=== PATIENT | female | born 1960 | race Caucasian/White ===

== ENCOUNTER 2017-09-22 13:09 | Inpatient (IN) | payer MEDICAID ==
[~2017-09-22] VITALS: Ht 162.6 cm; Wt 67.3 kg
[~2017-09-22 13:09] MED LIST: DOCU-28 PO; FLUT16SP16 INH; LIDOCAINE 5% TOP; LORA0.5T PO; NYST1000 PO; ONDA4TAB6 PO; OXCA150T5 PO; OXYC-138 PO; PANT40TA4 PO; PROMETHAZINE/CODEINE PO; VENTOLIN HFA 90 MCG INH; [UNRECOGNIZED DRUG - CODE] PO; [UNRECOGNIZED DRUG - OTHER] PO
[2017-09-22] MEDS ORDERED: heparin 10,000 units/1 ML INJ IV PRN (13:20)
[2017-09-22] MEDS ORDERED: heparin 10,000 units/1 ML INJ IV ONE ×2 (13:20→13:45)
[2017-09-22] MEDS ORDERED: aspirin 81mg tab.chew PO ONE (13:20)
[2017-09-22 13:35] LABS: BASOPHILS # (AUTO) 0.1 X10'3 (0-0.2); BASOPHILS % (AUTO) 0.2 % (0-1); EOSINOPHILS # (AUTO) 0.1 X10'3 (0-0.9); EOSINOPHILS % (AUTO) 0.2 % (0-6); HEMATOCRIT 33.4 % (35.0-45.0); HEMOGLOBIN 11.8 g/dl (12.0-16.0); LYMPHOCYTES # (AUTO) 1.1 X10'3 (1.1-4.8); LYMPHOCYTES % (AUTO) 4.3 % (21-51); MEAN CORPUSCULAR HEMOGLOBIN 29.6 PG (27.0-31.0); MEAN CORPUSCULAR HGB CONC 35.2 % (33.0-36.5); MEAN CORPUSCULAR VOLUME 84.2 FL (78-98); MEAN PLATELET VOLUME 8.7 FL (7.4-10.4); NEUTROPHILS # (AUTO) 23.7 X10'3 (1.8-7.7); NEUTROPHILS % (AUTO) 91.3 % (42-75); PLATELET COUNT 242 X10'3 (140-440); RED BLOOD COUNT 3.97 X10'6 (4.20-5.60); RED CELL DISTRIBUTION WIDTH 14.8 % (11.5-14.5)
[2017-09-22] MEDS ORDERED: LIDOcaine 1%/PF (10mg/ml) 5ml vial ONE (13:35)
[2017-09-22] MEDS ORDERED: iohexol 350 MG/1 ML 200ml bottle ONE (13:35)
[2017-09-22] MEDS ORDERED: heparin 1,000 UNITS/NS 500ml 500 ML ONE (13:35)
[2017-09-22 13:38] LABS: WHITE BLOOD COUNT 25.9 X10'3 (4.5-11.0)
[2017-09-22 13:45] LABS: PARTIAL THROMBOPLASTIN TIME 32 SECONDS (22-32)
[2017-09-22 13:57] LABS: ALANINE AMINOTRANSFERASE 63 U/L (12-78); ALBUMIN 2.7 G/DL (3.4-5.0); ALKALINE PHOSPHATASE 922 IU/L (46-116); ANION GAP 11 (8-16); ASPARTATE AMINO TRANSFERASE 38 U/L (10-37); BLOOD UREA NITROGEN 17 MG/DL (7-18); BUN/CREATININE RATIO 11.7 (6.6-38.0); CALCIUM 8.7 MG/DL (8.5-10.1); CHLORIDE 87 MMOL/L (99-107); CREATININE 1.45 MG/DL (0.40-0.90); MAGNESIUM 1.1 MG/DL (1.5-2.4); TOTAL CARBON DIOXIDE 21.7 MMOL/L (24-32); eGFR 37 ML/MIN
[2017-09-22 13:58] LABS: ALBUMIN/GLOBULIN RATIO 0.5 (1.1-1.5); GLUCOSE 95 MG/DL (70-104); POTASSIUM 4.6 MMOL/L (3.5-5.1)
[2017-09-22 13:59] LABS: PLATELET ESTIMATE NORMAL; TOTAL CELLS COUNTED 100
[2017-09-22 14:01] LABS: SODIUM 120 MMOL/L (135-145)
[2017-09-22] MEDS ORDERED: iohexol 350MG/ML 100ml bottle IV ONE (14:50)
[2017-09-22] MEDS ORDERED: normal saline 1000ML IV soln IVB ONE (15:10)
[2017-09-22] MEDS ORDERED: levoFLOXACIN-Levaquin 750MG/D5 150 ML IV STA (16:06)
[2017-09-22] MEDS ORDERED: fentaNYL/PF 50MCG/1 ML 2ML syringe IV ONE (16:10)
[2017-09-22] MEDS ORDERED: ondansetron/PF 4mg/2ml inj IV PRN (17:10)
[2017-09-22] MEDS ORDERED: mag hydrox/Alum hydrox/simeth 30ml oral suspension PO PRN (17:10)
[2017-09-22] MEDS ORDERED: magnesium hydroxide 30ml (MOM) UD suspension PO PRN (17:10)
[2017-09-22] MEDS ORDERED: acetaminophen 325mg tablet PO PRN ×2 (17:10)
[2017-09-22] MEDS ORDERED: morphine 4 MG/ML inj SYRINge IV PRN ×2 (17:10)
[2017-09-22] MEDS ORDERED: HYDROcodone/acetaminophen 10/325mg tab PO PRN (17:10)
[2017-09-22] MEDS ORDERED: methylPREDNISolone sod succ 125mg/2ml vial IV ONE (17:10)
[2017-09-22] MEDS ORDERED: vancomycin inj 1,250 MG in normal saline 250ml IV soln 250 ML IV ONE (17:40)
[2017-09-22] MEDS ORDERED: nitroGLYCERIN 0.4mg SUBLingual tab SL PRN (18:20)
[2017-09-22 19:15] VITALS: BP 119/59
[2017-09-22] MEDS: ipratropium/albuterol 3ml nebule NEB SCH ×2 (19:43→23:17)
[2017-09-22] MEDS: heparin, porcine 5000 units/ml vial SQ SCH (19:51)
[2017-09-22 19:52] LABS: OSMOLALITY UA 251 MOSM/K (50-1400)
[2017-09-22] MEDS: carVEDilol 3.125mg tablet PO SCH (19:52)
[2017-09-22] MEDS: aspirin 325mg tablet PO SCH (19:52)
[2017-09-22 19:53] LABS: SODIUM,URINE RANDOM < 15 MEQ/L
[2017-09-22] MEDS: normal saline 1000ml 1,000 ML IV SCH (20:02)
[2017-09-22] MEDS: oxyCODONE/APAP 10/325mg tablet PO SCH (20:02)
[2017-09-22 20:35] LABS: ALBUMIN 2.4 G/DL (3.4-5.0); BLOOD UREA NITROGEN 15 MG/DL (7-18); BUN/CREATININE RATIO 11.6 (6.6-38.0); CALCIUM 8.2 MG/DL (8.5-10.1); CHLORIDE 94 MMOL/L (99-107); CREATININE 1.29 MG/DL (0.40-0.90); POTASSIUM 4.4 MMOL/L (3.5-5.1); eGFR 43 ML/MIN
[2017-09-22 20:36] LABS: ANION GAP 11 (8-16); GLUCOSE 79 MG/DL (70-104); SODIUM 125 MMOL/L (135-145)
[2017-09-22] MEDS ORDERED: methylPREDNISolone sod succ 125mg/2ml vial IV SCH (21:00)
[2017-09-22] MEDS: nystatin 500,000 unit/5ML UD oral suspension PO SCH (22:45)
[2017-09-22] MEDS: docusate sod 100mg capsule PO SCH (22:45)
[2017-09-22] MEDS: LORazepam 0.5 MG tablet PO SCH (22:45)
[2017-09-22] MEDS: oxcarbazepine 150mg tablet PO SCH (22:47)
[2017-09-22 23:00] VITALS: BP 88/55
[2017-09-23] MEDS: piperacillin/tazo 4.5gm/100ml 100 ML IV SCH ×3 (01:05→16:51)
[2017-09-23] MEDS: oxyCODONE/APAP 10/325mg tablet PO SCH ×5 (01:52→20:15)
[2017-09-23 02:14] LABS: INR 1.1 INR; PROTHROMBIN TIME 11.5 SECONDS (9.0-12.0)
[2017-09-23 02:23] LABS: ALBUMIN 2.2 G/DL (3.4-5.0); ANION GAP 10 (8-16); BLOOD UREA NITROGEN 16 MG/DL (7-18); BUN/CREATININE RATIO 12.8 (6.6-38.0); CALCIUM 8.3 MG/DL (8.5-10.1); CHLORIDE 96 MMOL/L (99-107); CREATININE 1.25 MG/DL (0.40-0.90); POTASSIUM 4.5 MMOL/L (3.5-5.1); SODIUM 127 MMOL/L (135-145); TOTAL CARBON DIOXIDE 20.6 MMOL/L (24-32); eGFR 44 ML/MIN
[2017-09-23 02:26] LABS: GLUCOSE 99 MG/DL (70-104)
[2017-09-23 03:00] VITALS: BP 93/56
[2017-09-23] MEDS: ipratropium/albuterol 3ml nebule NEB SCH ×6 (03:44→23:05)
[2017-09-23 07:00] VITALS: BP 99/58
[2017-09-23] MEDS: fluticasone furoate 100MCG/puff inhaler IH SCH (08:00)
[2017-09-23] MEDS: carVEDilol 3.125mg tablet PO SCH ×2 (08:00→20:18)
[2017-09-23] MEDS ORDERED: pantoprazole 40 MG vial IV SCH (08:00)
[2017-09-23] MEDS: LORazepam 0.5 MG tablet PO SCH ×3 (08:52→20:16)
[2017-09-23] MEDS: pantoprazole 40mg Tablet.DR PO SCH (08:59)
[2017-09-23] MEDS: docusate sod 100mg capsule PO SCH ×3 (09:08→20:20)
[2017-09-23] MEDS: aspirin 325mg tablet PO SCH (09:09)
[2017-09-23 09:10] LABS: ANION GAP 12 (8-16); BLOOD UREA NITROGEN 20 MG/DL (7-18); BUN/CREATININE RATIO 16.5 (6.6-38.0); CALCIUM 8.5 MG/DL (8.5-10.1); CHLORIDE 97 MMOL/L (99-107); CHOL/HDL RATIO 17.2 (0.00-4.99); CHOLESTEROL 224 MG/DL (0-200); CREATININE 1.21 MG/DL (0.40-0.90); GLUCOSE 116 MG/DL (70-104); HDL CHOLESTEROL 13 MG/DL (35-60); LDL CHOLESTEROL 131 MG/DL (50-100); MAGNESIUM 1.4 MG/DL (1.5-2.4); POTASSIUM 4.1 MMOL/L (3.5-5.1); SODIUM 129 MMOL/L (135-145); TOTAL CARBON DIOXIDE 20.2 MMOL/L (24-32); TRIGLYCERIDES 186 MG/DL (20-135); eGFR 46 ML/MIN
[2017-09-23] MEDS: guaiFENesin ER 600mg tablet PO SCH ×2 (09:23→20:15)
[2017-09-23] MEDS: nystatin 500,000 unit/5ML UD oral suspension PO SCH ×4 (09:28→20:22)
[2017-09-23] MEDS ORDERED: magnesium 2GM in 50ml NS 50 ML IV PRN (09:35)
[2017-09-23] MEDS ORDERED: magnesium Cl slow-release 64mg tablet PO PRN (09:35)
[2017-09-23] MEDS ORDERED: potassium Cl 40MEQ/NS 500ml 500 ML IV PRN ×2 (09:35)
[2017-09-23] MEDS ORDERED: potassium Cl 20 mEq SR tablet PO PRN ×2 (09:35)
[2017-09-23] MEDS ORDERED: magnesium 4gm in 100ml NS 100 ML IV PRN (09:35)
[2017-09-23] MEDS: heparin, porcine 5000 units/ml vial SQ SCH ×2 (09:48→20:21)
[2017-09-23 11:00] VITALS: BP 95/47
[2017-09-23 11:41] LABS: RED BLOOD COUNT 3.29 X10'6 (4.20-5.60); WHITE BLOOD COUNT 23.7 X10'3 (4.5-11.0)
[2017-09-23 11:44] LABS: HEMATOCRIT 28.4 % (35.0-45.0); HEMOGLOBIN 9.8 g/dl (12.0-16.0); MEAN CORPUSCULAR HEMOGLOBIN 29.7 PG (27.0-31.0); MEAN CORPUSCULAR HGB CONC 34.5 % (33.0-36.5); MEAN CORPUSCULAR VOLUME 86.1 FL (78-98); MEAN PLATELET VOLUME 10.2 FL (7.4-10.4); PLATELET COUNT 212 X10'3 (140-440); RED CELL DISTRIBUTION WIDTH 14.8 % (11.5-14.5)
[2017-09-23 12:08] LABS: PLATELET ESTIMATE NORMAL; TOTAL CELLS COUNTED 100
[2017-09-23 12:09] LABS: TOXIC GRANULATION 2+; TOXIC VACUOLATION FEW
[2017-09-23] MEDS: methylPREDNISolone sod succ 125mg/2ml vial IV SCH ×4 (12:31→20:32)
[2017-09-23] MEDS: normal saline 1000ml 1,000 ML IV SCH ×2 (12:46→20:25)
[2017-09-23 14:22] LABS: ALBUMIN 2.1 G/DL (3.4-5.0); ANION GAP 12 (8-16); BLOOD UREA NITROGEN 24 MG/DL (7-18); BUN/CREATININE RATIO 19.8 (6.6-38.0); CALCIUM 8.7 MG/DL (8.5-10.1); CHLORIDE 98 MMOL/L (99-107); CREATININE 1.21 MG/DL (0.40-0.90); GLUCOSE 101 MG/DL (70-104); POTASSIUM 4.1 MMOL/L (3.5-5.1); SODIUM 130 MMOL/L (135-145); TOTAL CARBON DIOXIDE 20.1 MMOL/L (24-32); eGFR 46 ML/MIN
[2017-09-23 17:00] VITALS: BP 89/53
[2017-09-23] MEDS ORDERED: vancomycin/NS 1 GM ADD-VANTAGE 250 ML IV SCH (17:00)
[2017-09-23 19:00] VITALS: BP 106/57
[2017-09-23] MEDS: temazepam 15mg capsule PO PRN (20:15)
[2017-09-23] MEDS: oxcarbazepine 150mg tablet PO SCH (20:25)
[2017-09-23] MEDS: traZODone 150mg tablet PO SCH (21:58)
[2017-09-23] MEDS: nicotine 21mg patch - 24 hr TD SCH (21:59)
[2017-09-23 23:00] VITALS: BP 111/61
[2017-09-24] VITALS (13 sets, daily range): BP systolic 85–121; BP diastolic 46–63
[2017-09-24] MEDS: piperacillin/tazo 4.5gm/100ml 100 ML IV SCH ×3 (00:25→16:22)
[2017-09-24] MEDS: normal saline 1000ml 1,000 ML IV SCH ×2 (01:16→13:46)
[2017-09-24] MEDS: oxyCODONE/APAP 10/325mg tablet PO PRN ×3 (02:45→17:35)
[2017-09-24] MEDS: methylPREDNISolone sod succ 125mg/2ml vial IV SCH ×4 (02:45→20:31)
[2017-09-24] MEDS: ipratropium/albuterol 3ml nebule NEB SCH ×6 (02:58→23:31)
[2017-09-24] MEDS ORDERED: HYDR-3927 PO (04:51)
[2017-09-24] MEDS ORDERED: CLON0.1T PO (04:51)
[2017-09-24] MEDS ORDERED: NAPR-996 PO (04:51)
[2017-09-24] MEDS ORDERED: OMEP20TA5 PO (04:51)
[2017-09-24 05:08] LABS: HEMATOCRIT 27.1 % (35.0-45.0); HEMOGLOBIN 9.4 g/dl (12.0-16.0); MEAN CORPUSCULAR HEMOGLOBIN 29.7 PG (27.0-31.0); MEAN CORPUSCULAR HGB CONC 34.6 % (33.0-36.5); PLATELET COUNT 259 X10'3 (140-440); RED BLOOD COUNT 3.15 X10'6 (4.20-5.60); RED CELL DISTRIBUTION WIDTH 15.1 % (11.5-14.5)
[2017-09-24 05:13] LABS: WHITE BLOOD COUNT 25.1 X10'3 (4.5-11.0)
[2017-09-24 05:17] LABS: PROTHROMBIN TIME 10.3 SECONDS (9.0-12.0)
[2017-09-24 05:28] LABS: ALBUMIN 1.9 G/DL (3.4-5.0); ANION GAP 10 (8-16); BLOOD UREA NITROGEN 33 MG/DL (7-18); BUN/CREATININE RATIO 24.3 (6.6-38.0); CALCIUM 8.4 MG/DL (8.5-10.1); CHLORIDE 98 MMOL/L (99-107); CREATININE 1.36 MG/DL (0.40-0.90); MAGNESIUM 2.8 MG/DL (1.5-2.4); POTASSIUM 3.9 MMOL/L (3.5-5.1); SODIUM 128 MMOL/L (135-145); TOTAL CARBON DIOXIDE 20.3 MMOL/L (24-32); eGFR 40 ML/MIN
[2017-09-24 05:44] LABS: GLUCOSE 152 MG/DL (70-104)
[2017-09-24 07:00] LABS: LYMPHOCYTES % (MANUAL) 8 % (21-51); MONOCYTES % (MANUAL) 2 % (2-12); NEUTROPHILS % (MANUAL) 90 % (42-75); TOTAL CELLS COUNTED 100
[2017-09-24 07:01] LABS: PLATELET ESTIMATE NORMAL
[2017-09-24] MEDS: fluticasone furoate 100MCG/puff inhaler IH SCH (07:45)
[2017-09-24] MEDS: LORazepam 0.5 MG tablet PO SCH ×3 (08:00→20:27)
[2017-09-24] MEDS: carVEDilol 3.125mg tablet PO SCH ×2 (08:00→20:27)
[2017-09-24] MEDS: nicotine 21mg patch - 24 hr TD SCH (08:00)
[2017-09-24] MEDS: docusate sod 100mg capsule PO SCH ×3 (08:00→20:27)
[2017-09-24] MEDS: nystatin 500,000 unit/5ML UD oral suspension PO SCH ×4 (08:00→20:28)
[2017-09-24] MEDS ORDERED: aminophylline 250mg/10ml inj. IV PRN (08:15)
[2017-09-24] MEDS ORDERED: nitroGLYCERIN 0.4mg SUBLingual tab SL PRN (08:15)
[2017-09-24] MEDS ORDERED: metoprolol tartrate 1mg/ml inj IV PRN (08:15)
[2017-09-24] MEDS ORDERED: regadenoson 0.4mg/5ml syringe IV ONE ×2 (08:15→10:29)
[2017-09-24] MEDS ORDERED: aminophylline inj. 10 ML IV ONE (10:29)
[2017-09-24] MEDS: pantoprazole 40mg Tablet.DR PO SCH (12:22)
[2017-09-24] MEDS: aspirin 325mg tablet PO SCH (12:22)
[2017-09-24] MEDS: guaiFENesin ER 600mg tablet PO SCH ×2 (12:22→20:27)
[2017-09-24] MEDS: heparin, porcine 5000 units/ml vial SQ SCH ×2 (12:23→20:30)
[2017-09-24] MEDS: oxcarbazepine 150mg tablet PO SCH (20:26)
[2017-09-24] MEDS ORDERED: HYDROcodone/acetaminophen 10/325mg tab PO ONE (21:50)
[2017-09-24] MEDS: traZODone 150mg tablet PO SCH (21:50)
[2017-09-25] MEDS: piperacillin/tazo 4.5gm/100ml 100 ML IV SCH ×3 (00:57→17:27)
[2017-09-25] MEDS: oxyCODONE/APAP 10/325mg tablet PO PRN ×4 (01:02→20:13)
[2017-09-25] MEDS: methylPREDNISolone sod succ 125mg/2ml vial IV SCH ×4 (01:03→20:14)
[2017-09-25] MEDS: normal saline 1000ml 1,000 ML IV SCH ×2 (02:16→14:46)
[2017-09-25 03:00] VITALS: BP 118/67
[2017-09-25] MEDS: ipratropium/albuterol 3ml nebule NEB SCH ×6 (03:56→23:16)
[2017-09-25 05:05] LABS: HEMATOCRIT 27.7 % (35.0-45.0); HEMOGLOBIN 9.6 g/dl (12.0-16.0); MEAN CORPUSCULAR HEMOGLOBIN 29.5 PG (27.0-31.0); MEAN CORPUSCULAR HGB CONC 34.8 % (33.0-36.5); MEAN CORPUSCULAR VOLUME 84.9 FL (78-98); MEAN PLATELET VOLUME 8.7 FL (7.4-10.4); PLATELET COUNT 281 X10'3 (140-440); RED BLOOD COUNT 3.26 X10'6 (4.20-5.60); RED CELL DISTRIBUTION WIDTH 15.2 % (11.5-14.5); WHITE BLOOD COUNT 21.5 X10'3 (4.5-11.0)
[2017-09-25 05:16] LABS: ANION GAP 7 (8-16); BLOOD UREA NITROGEN 29 MG/DL (7-18); CALCIUM 8.4 MG/DL (8.5-10.1); CHLORIDE 100 MMOL/L (99-107); CREATININE 1.21 MG/DL (0.40-0.90); MAGNESIUM 2.4 MG/DL (1.5-2.4); POTASSIUM 4.4 MMOL/L (3.5-5.1); SODIUM 129 MMOL/L (135-145); TOTAL CARBON DIOXIDE 21.7 MMOL/L (24-32); eGFR 46 ML/MIN
[2017-09-25 05:17] LABS: INR 0.9 INR; PROTHROMBIN TIME 9.4 SECONDS (9.0-12.0)
[2017-09-25 05:30] VITALS: BP 111/69
[2017-09-25 05:37] LABS: GLUCOSE 152 MG/DL (70-104)
[2017-09-25 05:38] LABS: BANDS% (MANUAL) 3 % (0-10); LYMPHOCYTES % (MANUAL) 6 % (21-51); METAMYLEOCYTES% (MANUAL) 1 % (0-0); NEUTROPHILS % (MANUAL) 90 % (42-75); PLATELET ESTIMATE NORMAL; TOTAL CELLS COUNTED 100
[2017-09-25 05:39] LABS: TARGET CELLS FEW; TOXIC GRANULATION 1+
[2017-09-25] MEDS: fluticasone furoate 100MCG/puff inhaler IH SCH (07:03)
[2017-09-25] MEDS: nystatin 500,000 unit/5ML UD oral suspension PO SCH ×4 (07:35→20:12)
[2017-09-25] MEDS: nicotine 21mg patch - 24 hr TD SCH (07:35)
[2017-09-25] MEDS: docusate sod 100mg capsule PO SCH ×3 (07:36→20:13)
[2017-09-25] MEDS: pantoprazole 40mg Tablet.DR PO SCH (07:36)
[2017-09-25] MEDS: guaiFENesin ER 600mg tablet PO SCH ×2 (07:37→20:13)
[2017-09-25] MEDS: heparin, porcine 5000 units/ml vial SQ SCH ×2 (07:37→20:14)
[2017-09-25] MEDS: LORazepam 0.5 MG tablet PO SCH ×2 (07:37→13:00)
[2017-09-25] MEDS: carVEDilol 3.125mg tablet PO SCH ×2 (07:37→20:12)
[2017-09-25] MEDS: aspirin 325mg tablet PO SCH (10:07)
[2017-09-25 11:00] VITALS: BP 110/65
[2017-09-25 15:00] VITALS: BP 123/66
[2017-09-25] MEDS ORDERED: methylPREDNISolone sod succ 125mg/2ml vial IV ONE (16:20)
[2017-09-25 19:00] VITALS: BP 122/73
[2017-09-25] MEDS: oxcarbazepine 150mg tablet PO SCH (20:13)
[2017-09-25] MEDS ORDERED: methylPREDNISolone sod succ 125mg/2ml vial IV SCH (21:00)
[2017-09-25] MEDS: traZODone 150mg tablet PO SCH (21:55)
[2017-09-26] VITALS: BP 140/80
[2017-09-26] MEDS: piperacillin/tazo 4.5gm/100ml 100 ML IV SCH ×2 (00:23→07:49)
[2017-09-26] MEDS: LORazepam 0.5 MG tablet PO PRN ×2 (00:24→19:51)
[2017-09-26] MEDS: ipratropium/albuterol 3ml nebule NEB SCH ×6 (02:46→23:04)
[2017-09-26] MEDS: methylPREDNISolone sod succ 125mg/2ml vial IV SCH ×4 (02:50→19:52)
[2017-09-26] MEDS: HYDROcodone/acetaminophen 5mg/325mg tablet PO PRN (03:10)
[2017-09-26 05:31] LABS: BASOPHILS % (AUTO) 0 % (0-1); EOSINOPHILS # (AUTO) 0.4 X10'3 (0-0.9); EOSINOPHILS % (AUTO) 1.7 % (0-6); HEMATOCRIT 27.6 % (35.0-45.0); HEMOGLOBIN 9.6 g/dl (12.0-16.0); LYMPHOCYTES # (AUTO) 3.3 X10'3 (1.1-4.8); LYMPHOCYTES % (AUTO) 15.4 % (21-51); MEAN CORPUSCULAR HEMOGLOBIN 29.4 PG (27.0-31.0); MEAN CORPUSCULAR HGB CONC 34.8 % (33.0-36.5); MEAN CORPUSCULAR VOLUME 84.5 FL (78-98); MEAN PLATELET VOLUME 8.5 FL (7.4-10.4); MONOCYTES # (AUTO) 0.6 X10'3 (0-0.9); MONOCYTES % (AUTO) 2.9 % (2-12); NEUTROPHILS # (AUTO) 17.2 X10'3 (1.8-7.7); PLATELET COUNT 326 X10'3 (140-440); RED BLOOD COUNT 3.26 X10'6 (4.20-5.60); RED CELL DISTRIBUTION WIDTH 15.2 % (11.5-14.5); WHITE BLOOD COUNT 21.4 X10'3 (4.5-11.0)
[2017-09-26 05:47] LABS: ALBUMIN 2.1 G/DL (3.4-5.0); ANION GAP 7 (8-16); BLOOD UREA NITROGEN 25 MG/DL (7-18); BUN/CREATININE RATIO 22.5 (6.6-38.0); CALCIUM 8.8 MG/DL (8.5-10.1); CHLORIDE 96 MMOL/L (99-107); CREATININE 1.11 MG/DL (0.40-0.90); POTASSIUM 4.4 MMOL/L (3.5-5.1); SODIUM 128 MMOL/L (135-145); TOTAL CARBON DIOXIDE 24.6 MMOL/L (24-32); eGFR 51 ML/MIN
[2017-09-26 05:49] LABS: GLUCOSE 136 MG/DL (70-104)
[2017-09-26 05:56] LABS: INR 0.9 INR; PROTHROMBIN TIME 9.6 SECONDS (9.0-12.0)
[2017-09-26 07:24] LABS: ANISOCYTOSIS 1+; MICROCYTOSIS 1+; PLATELET ESTIMATE NORMAL; TARGET CELLS FEW; TOTAL CELLS COUNTED 100
[2017-09-26] MEDS: fluticasone furoate 100MCG/puff inhaler IH SCH (07:27)
[2017-09-26] MEDS: guaiFENesin ER 600mg tablet PO SCH ×2 (07:48→19:52)
[2017-09-26] MEDS: aspirin 325mg tablet PO SCH (07:48)
[2017-09-26] MEDS: carVEDilol 3.125mg tablet PO SCH ×2 (07:48→19:52)
[2017-09-26] MEDS: pantoprazole 40mg Tablet.DR PO SCH (07:48)
[2017-09-26] MEDS: docusate sod 100mg capsule PO SCH ×3 (07:48→21:11)
[2017-09-26] MEDS: nicotine 21mg patch - 24 hr TD SCH (07:49)
[2017-09-26] MEDS: heparin, porcine 5000 units/ml vial SQ SCH ×2 (07:49→19:52)
[2017-09-26] MEDS: nystatin 500,000 unit/5ML UD oral suspension PO SCH ×4 (07:59→21:10)
[2017-09-26] MEDS ORDERED: levoFLOXACIN-Levaquin 750MG/D5 150 ML IV STA (09:37)
[2017-09-26 11:00] VITALS: BP 146/81
[2017-09-26] MEDS: busPIRone 5mg tablet PO SCH ×2 (13:16→21:11)
[2017-09-26] MEDS: oxyCODONE/APAP 10/325mg tablet PO PRN ×2 (13:23→19:51)
[2017-09-26] MEDS: metroNIDAZOLE-Flagyl 500mg/NS 100 ML IV SCH ×2 (16:55→23:17)
[2017-09-26 20:00] VITALS: BP 100/60
[2017-09-26] MEDS: oxcarbazepine 150mg tablet PO SCH (21:10)
[2017-09-26] MEDS: traZODone 150mg tablet PO SCH (21:10)
[2017-09-26] MEDS: temazepam 15mg capsule PO PRN (21:11)
[2017-09-27] VITALS: BP 135/68
[2017-09-27] MEDS: methylPREDNISolone sod succ 125mg/2ml vial IV SCH ×4 (01:47→20:08)
[2017-09-27] MEDS: ipratropium/albuterol 3ml nebule NEB SCH ×5 (03:22→22:58)
[2017-09-27] MEDS: oxyCODONE/APAP 10/325mg tablet PO PRN ×2 (05:30→15:11)
[2017-09-27 06:23] LABS: BASOPHILS # (AUTO) 0.1 X10'3 (0-0.2); BASOPHILS % (AUTO) 0.4 % (0-1); EOSINOPHILS # (AUTO) 0.3 X10'3 (0-0.9); EOSINOPHILS % (AUTO) 1.2 % (0-6); HEMATOCRIT 31.9 % (35.0-45.0); HEMOGLOBIN 11.1 g/dl (12.0-16.0); LYMPHOCYTES # (AUTO) 2.8 X10'3 (1.1-4.8); LYMPHOCYTES % (AUTO) 12.1 % (21-51); MEAN CORPUSCULAR HEMOGLOBIN 29.5 PG (27.0-31.0); MEAN CORPUSCULAR HGB CONC 34.7 % (33.0-36.5); MEAN PLATELET VOLUME 8.3 FL (7.4-10.4); MONOCYTES # (AUTO) 0.7 X10'3 (0-0.9); MONOCYTES % (AUTO) 3.2 % (2-12); NEUTROPHILS # (AUTO) 19.5 X10'3 (1.8-7.7); NEUTROPHILS % (AUTO) 83.1 % (42-75); PLATELET COUNT 398 X10'3 (140-440); RED BLOOD COUNT 3.76 X10'6 (4.20-5.60); RED CELL DISTRIBUTION WIDTH 15.3 % (11.5-14.5); WHITE BLOOD COUNT 23.5 X10'3 (4.5-11.0)
[2017-09-27 06:35] LABS: ALBUMIN 2.2 G/DL (3.4-5.0); ANION GAP 7 (8-16); BLOOD UREA NITROGEN 22 MG/DL (7-18); BUN/CREATININE RATIO 24.7 (6.6-38.0); CALCIUM 9.1 MG/DL (8.5-10.1); CHLORIDE 102 MMOL/L (99-107); CREATININE 0.89 MG/DL (0.40-0.90); MAGNESIUM 1.9 MG/DL (1.5-2.4); SODIUM 135 MMOL/L (135-145); TOTAL CARBON DIOXIDE 26.4 MMOL/L (24-32); eGFR 65 ML/MIN
[2017-09-27 06:37] LABS: GLUCOSE 136 MG/DL (70-104)
[2017-09-27 07:11] LABS: TOTAL CELLS COUNTED 100
[2017-09-27 07:12] LABS: ANISOCYTOSIS 1+; PLATELET ESTIMATE NORMAL; TARGET CELLS 1+
[2017-09-27 07:13] LABS: TOXIC GRANULATION 1+
[2017-09-27 07:42] VITALS: BP 137/78
[2017-09-27] MEDS: nystatin 500,000 unit/5ML UD oral suspension PO SCH ×4 (07:58→20:07)
[2017-09-27] MEDS: busPIRone 5mg tablet PO SCH ×3 (07:59→20:07)
[2017-09-27] MEDS: heparin, porcine 5000 units/ml vial SQ SCH ×2 (07:59→19:06)
[2017-09-27] MEDS: nicotine 21mg patch - 24 hr TD SCH (07:59)
[2017-09-27] MEDS: guaiFENesin ER 600mg tablet PO SCH ×2 (08:00→19:05)
[2017-09-27] MEDS: carVEDilol 3.125mg tablet PO SCH ×2 (08:00→19:05)
[2017-09-27] MEDS: docusate sod 100mg capsule PO SCH ×3 (08:00→20:07)
[2017-09-27] MEDS: pantoprazole 40mg Tablet.DR PO SCH (08:00)
[2017-09-27] MEDS: aspirin 325mg tablet PO SCH (08:02)
[2017-09-27] MEDS: metroNIDAZOLE-Flagyl 500mg/NS 100 ML IV SCH ×3 (08:02→23:58)
[2017-09-27] MEDS: HYDROcodone/acetaminophen 5mg/325mg tablet PO PRN ×2 (10:12→20:07)
[2017-09-27] MEDS: fluticasone furoate 100MCG/puff inhaler IH SCH (10:57)
[2017-09-27 11:00] VITALS: BP 119/67
[2017-09-27] MEDS ORDERED: levoFLOXACIN-Levaquin 750MG/D5 150 ML IV STA (12:30)
[2017-09-27 19:00] VITALS: BP 126/71
[2017-09-27] MEDS: traZODone 150mg tablet PO SCH (20:07)
[2017-09-27] MEDS: temazepam 15mg capsule PO PRN (21:20)
[2017-09-27] MEDS: oxcarbazepine 150mg tablet PO SCH (21:20)
[2017-09-27 23:30] VITALS: BP 128/66
[2017-09-28] VITALS: BP 128/66
[2017-09-28] MEDS: oxyCODONE/APAP 10/325mg tablet PO PRN ×4 (00:48→23:15)
[2017-09-28] MEDS: ipratropium/albuterol 3ml nebule NEB SCH ×6 (02:58→22:42)
[2017-09-28 05:44] LABS: POTASSIUM 3.8 MMOL/L (3.5-5.1)
[2017-09-28] MEDS: fluticasone furoate 100MCG/puff inhaler IH SCH (06:54)
[2017-09-28 07:30] VITALS: BP 149/76
[2017-09-28] MEDS: guaiFENesin ER 600mg tablet PO SCH ×2 (07:52→19:13)
[2017-09-28] MEDS: nystatin 500,000 unit/5ML UD oral suspension PO SCH ×4 (07:53→21:24)
[2017-09-28] MEDS: busPIRone 5mg tablet PO SCH ×3 (07:53→21:23)
[2017-09-28] MEDS: docusate sod 100mg capsule PO SCH ×3 (07:54→21:24)
[2017-09-28] MEDS: aspirin 325mg tablet PO SCH (07:54)
[2017-09-28] MEDS: carVEDilol 3.125mg tablet PO SCH ×2 (07:54→19:13)
[2017-09-28] MEDS: metroNIDAZOLE-Flagyl 500mg/NS 100 ML IV SCH ×3 (07:54→23:13)
[2017-09-28] MEDS: pantoprazole 40mg Tablet.DR PO SCH (07:56)
[2017-09-28] MEDS: nicotine 21mg patch - 24 hr TD SCH (07:57)
[2017-09-28] MEDS: heparin, porcine 5000 units/ml vial SQ SCH ×2 (07:57→19:13)
[2017-09-28] MEDS: methylPREDNISolone sod succ 125mg/2ml vial IV SCH ×3 (07:57→21:24)
[2017-09-28 09:10] LABS: BASOPHILS # (AUTO) 0.2 X10'3 (0-0.2); BASOPHILS % (AUTO) 0.9 % (0-1); EOSINOPHILS # (AUTO) 0.2 X10'3 (0-0.9); HEMATOCRIT 31.6 % (35.0-45.0); HEMOGLOBIN 10.5 g/dl (12.0-16.0); LYMPHOCYTES # (AUTO) 3.8 X10'3 (1.1-4.8); LYMPHOCYTES % (AUTO) 16.6 % (21-51); MEAN CORPUSCULAR HEMOGLOBIN 28.9 PG (27.0-31.0); MEAN CORPUSCULAR HGB CONC 33.2 % (33.0-36.5); MEAN CORPUSCULAR VOLUME 87.1 FL (78-98); MEAN PLATELET VOLUME 8.7 FL (7.4-10.4); MONOCYTES # (AUTO) 0.6 X10'3 (0-0.9); MONOCYTES % (AUTO) 2.5 % (2-12); NEUTROPHILS # (AUTO) 18.2 X10'3 (1.8-7.7); PLATELET COUNT 380 X10'3 (140-440); RED BLOOD COUNT 3.63 X10'6 (4.20-5.60); RED CELL DISTRIBUTION WIDTH 15.1 % (11.5-14.5); WHITE BLOOD COUNT 23.1 X10'3 (4.5-11.0)
[2017-09-28 09:23] LABS: ANION GAP 8 (8-16); BLOOD UREA NITROGEN 22 MG/DL (7-18); BUN/CREATININE RATIO 25.9 (6.6-38.0); CALCIUM 8.5 MG/DL (8.5-10.1); CHLORIDE 103 MMOL/L (99-107); CREATININE 0.85 MG/DL (0.40-0.90); GLUCOSE 130 MG/DL (70-104); SODIUM 139 MMOL/L (135-145); TOTAL CARBON DIOXIDE 28.3 MMOL/L (24-32); eGFR 69 ML/MIN
[2017-09-28 09:28] LABS: TOTAL CELLS COUNTED 100
[2017-09-28 09:29] LABS: ANISOCYTOSIS 1+; MICROCYTOSIS 1+; PLATELET ESTIMATE NORMAL; TARGET CELLS 1+; TOXIC GRANULATION 1+
[2017-09-28 11:00] VITALS: BP 147/88
[2017-09-28] MEDS: HYDROcodone/acetaminophen 5mg/325mg tablet PO PRN ×2 (13:03→21:23)
[2017-09-28 19:51] VITALS: BP 148/77
[2017-09-28] MEDS: temazepam 15mg capsule PO PRN (21:23)
[2017-09-28] MEDS: traZODone 150mg tablet PO SCH (21:24)
[2017-09-28] MEDS: oxcarbazepine 150mg tablet PO SCH (21:24)
[2017-09-29] VITALS: BP 129/67
[2017-09-29] MEDS: ipratropium/albuterol 3ml nebule NEB SCH ×5 (03:54→23:21)
[2017-09-29 08:00] VITALS: BP 135/69
[2017-09-29] MEDS ORDERED: methylPREDNISolone sod succ 125mg/2ml vial IV SCH (08:00)
[2017-09-29] MEDS: fluticasone furoate 100MCG/puff inhaler IH SCH (08:00)
[2017-09-29] MEDS: vancomycin/NS 1 GM ADD-VANTAGE 250 ML IV SCH ×2 (09:27→21:34)
[2017-09-29] MEDS: aspirin 325mg tablet PO SCH (09:27)
[2017-09-29] MEDS: guaiFENesin ER 600mg tablet PO SCH ×2 (09:28→20:08)
[2017-09-29] MEDS: nystatin 500,000 unit/5ML UD oral suspension PO SCH ×4 (09:28→21:36)
[2017-09-29] MEDS: docusate sod 100mg capsule PO SCH ×3 (09:31→21:35)
[2017-09-29] MEDS: carVEDilol 3.125mg tablet PO SCH ×2 (09:31→20:08)
[2017-09-29] MEDS: busPIRone 5mg tablet PO SCH ×3 (09:31→21:35)
[2017-09-29] MEDS: pantoprazole 40mg Tablet.DR PO SCH (09:31)
[2017-09-29] MEDS: oxyCODONE/APAP 10/325mg tablet PO PRN ×3 (09:32→21:35)
[2017-09-29] MEDS: nicotine 21mg patch - 24 hr TD SCH (09:33)
[2017-09-29] MEDS: heparin, porcine 5000 units/ml vial SQ SCH ×2 (09:34→20:13)
[2017-09-29 11:00] VITALS: BP 147/81
[2017-09-29] MEDS: HYDROcodone/acetaminophen 5mg/325mg tablet PO PRN (17:56)
[2017-09-29 19:30] VITALS: BP 147/81
[2017-09-29] MEDS: traZODone 150mg tablet PO SCH (21:35)
[2017-09-29] MEDS: oxcarbazepine 150mg tablet PO SCH (21:35)
[2017-09-30 00:38] VITALS: BP 136/74
[2017-09-30] MEDS: HYDROcodone/acetaminophen 5mg/325mg tablet PO PRN ×4 (02:55→22:48)
[2017-09-30] MEDS: ipratropium/albuterol 3ml nebule NEB SCH (03:01)
[2017-09-30 05:07] LABS: BASOPHILS % (AUTO) 0.1 % (0-1); EOSINOPHILS # (AUTO) 0.3 X10'3 (0-0.9); EOSINOPHILS % (AUTO) 1.4 % (0-6); HEMATOCRIT 33.2 % (35.0-45.0); HEMOGLOBIN 11.3 g/dl (12.0-16.0); MEAN CORPUSCULAR VOLUME 85.3 FL (78-98); MEAN PLATELET VOLUME 7.6 FL (7.4-10.4); MONOCYTES # (AUTO) 0.2 X10'3 (0-0.9); MONOCYTES % (AUTO) 0.9 % (2-12); NEUTROPHILS # (AUTO) 14.5 X10'3 (1.8-7.7); NEUTROPHILS % (AUTO) 72.6 % (42-75); PLATELET COUNT 391 X10'3 (140-440); RED BLOOD COUNT 3.89 X10'6 (4.20-5.60); RED CELL DISTRIBUTION WIDTH 15.1 % (11.5-14.5)
[2017-09-30] MEDS: oxyCODONE/APAP 10/325mg tablet PO PRN ×3 (05:16→19:25)
[2017-09-30 05:27] LABS: ALBUMIN 2.4 G/DL (3.4-5.0); ANION GAP 6 (8-16); BLOOD UREA NITROGEN 17 MG/DL (7-18); BUN/CREATININE RATIO 17.5 (6.6-38.0); CALCIUM 8.7 MG/DL (8.5-10.1); CHLORIDE 101 MMOL/L (99-107); CREATININE 0.97 MG/DL (0.40-0.90); GLUCOSE 97 MG/DL (70-104); POTASSIUM 3.7 MMOL/L (3.5-5.1); SODIUM 143 MMOL/L (135-145); TOTAL CARBON DIOXIDE 36.4 MMOL/L (24-32); eGFR 59 ML/MIN
[2017-09-30 07:34] VITALS: BP 140/71
[2017-09-30] MEDS: fluticasone furoate 100MCG/puff inhaler IH SCH (07:37)
[2017-09-30] MEDS: nystatin 500,000 unit/5ML UD oral suspension PO SCH ×4 (09:39→21:27)
[2017-09-30] MEDS: heparin, porcine 5000 units/ml vial SQ SCH ×2 (09:40→19:24)
[2017-09-30] MEDS: guaiFENesin ER 600mg tablet PO SCH ×2 (09:45→19:25)
[2017-09-30] MEDS: pantoprazole 40mg Tablet.DR PO SCH (09:45)
[2017-09-30] MEDS: nicotine 21mg patch - 24 hr TD SCH (09:45)
[2017-09-30] MEDS: docusate sod 100mg capsule PO SCH ×3 (09:45→21:27)
[2017-09-30] MEDS: carVEDilol 3.125mg tablet PO SCH ×2 (09:46→19:25)
[2017-09-30] MEDS: aspirin 325mg tablet PO SCH (09:46)
[2017-09-30] MEDS: busPIRone 5mg tablet PO SCH ×3 (09:49→21:27)
[2017-09-30] MEDS: vancomycin/NS 1 GM ADD-VANTAGE 250 ML IV SCH ×2 (09:50→21:27)
[2017-09-30 11:00] VITALS: BP 109/71
[2017-09-30 20:00] VITALS: BP 130/84
[2017-09-30] MEDS ORDERED: VANCOMYCIN LEVEL IV NR (20:30)
[2017-09-30] MEDS: oxcarbazepine 150mg tablet PO SCH (21:25)
[2017-09-30] MEDS: traZODone 150mg tablet PO SCH (21:27)
[2017-10-01] VITALS: BP 108/57
[2017-10-01] MEDS: temazepam 15mg capsule PO PRN ×2 (02:15→21:54)
[2017-10-01] MEDS: HYDROcodone/acetaminophen 5mg/325mg tablet PO PRN ×3 (02:53→19:16)
[2017-10-01 05:20] LABS: BASOPHILS % (AUTO) 0.1 % (0-1); EOSINOPHILS # (AUTO) 0.4 X10'3 (0-0.9); EOSINOPHILS % (AUTO) 2.3 % (0-6); HEMATOCRIT 33.1 % (35.0-45.0); HEMOGLOBIN 11.4 g/dl (12.0-16.0); LYMPHOCYTES # (AUTO) 5.3 X10'3 (1.1-4.8); MEAN CORPUSCULAR HEMOGLOBIN 29.3 PG (27.0-31.0); MEAN CORPUSCULAR HGB CONC 34.4 % (33.0-36.5); MEAN CORPUSCULAR VOLUME 85.2 FL (78-98); MONOCYTES # (AUTO) 0.7 X10'3 (0-0.9); MONOCYTES % (AUTO) 3.8 % (2-12); NEUTROPHILS # (AUTO) 12.5 X10'3 (1.8-7.7); NEUTROPHILS % (AUTO) 65.8 % (42-75); PLATELET COUNT 342 X10'3 (140-440); RED BLOOD COUNT 3.88 X10'6 (4.20-5.60); RED CELL DISTRIBUTION WIDTH 15.1 % (11.5-14.5); WHITE BLOOD COUNT 18.9 X10'3 (4.5-11.0)
[2017-10-01 05:34] LABS: ALBUMIN 2.3 G/DL (3.4-5.0); ANION GAP 5 (8-16); BLOOD UREA NITROGEN 14 MG/DL (7-18); BUN/CREATININE RATIO 14.9 (6.6-38.0); CALCIUM 8.6 MG/DL (8.5-10.1); CHLORIDE 100 MMOL/L (99-107); CREATININE 0.94 MG/DL (0.40-0.90); GLUCOSE 85 MG/DL (70-104); POTASSIUM 3.5 MMOL/L (3.5-5.1); SODIUM 141 MMOL/L (135-145); TOTAL CARBON DIOXIDE 35.6 MMOL/L (24-32); eGFR 61 ML/MIN
[2017-10-01 07:00] VITALS: BP 145/70
[2017-10-01] MEDS: docusate sod 100mg capsule PO SCH ×3 (07:48→20:50)
[2017-10-01] MEDS: guaiFENesin ER 600mg tablet PO SCH ×2 (07:49→20:50)
[2017-10-01] MEDS: oxyCODONE/APAP 10/325mg tablet PO PRN ×2 (07:51→16:03)
[2017-10-01] MEDS: busPIRone 5mg tablet PO SCH ×3 (07:52→20:50)
[2017-10-01] MEDS: nicotine 21mg patch - 24 hr TD SCH (07:53)
[2017-10-01] MEDS: nystatin 500,000 unit/5ML UD oral suspension PO SCH ×4 (07:53→20:49)
[2017-10-01] MEDS: carVEDilol 3.125mg tablet PO SCH ×2 (07:56→20:50)
[2017-10-01] MEDS: pantoprazole 40mg Tablet.DR PO SCH (07:56)
[2017-10-01] MEDS: heparin, porcine 5000 units/ml vial SQ SCH ×2 (07:56→20:50)
[2017-10-01] MEDS: fluticasone furoate 100MCG/puff inhaler IH SCH (08:00)
[2017-10-01] MEDS: aspirin 325mg tablet PO SCH (08:03)
[2017-10-01] MEDS: vancomycin inj 1,250 MG in normal saline 250ml IV soln 250 ML IV SCH ×2 (09:58→20:50)
[2017-10-01 11:00] VITALS: BP 103/59
[2017-10-01 20:00] VITALS: BP 133/73
[2017-10-01] MEDS: oxcarbazepine 150mg tablet PO SCH (20:49)
[2017-10-01] MEDS: traZODone 150mg tablet PO SCH (20:49)
[2017-10-02] VITALS: BP 131/69
[2017-10-02] MEDS: oxyCODONE/APAP 10/325mg tablet PO PRN ×2 (00:59→20:03)
[2017-10-02] MEDS: temazepam 15mg capsule PO PRN (00:59)
[2017-10-02 05:24] LABS: BASOPHILS # (AUTO) 0.1 X10'3 (0-0.2); BASOPHILS % (AUTO) 0.4 % (0-1); EOSINOPHILS # (AUTO) 0.4 X10'3 (0-0.9); EOSINOPHILS % (AUTO) 2.1 % (0-6); HEMATOCRIT 30.7 % (35.0-45.0); HEMOGLOBIN 10.4 g/dl (12.0-16.0); LYMPHOCYTES # (AUTO) 3.9 X10'3 (1.1-4.8); LYMPHOCYTES % (AUTO) 19.8 % (21-51); MEAN CORPUSCULAR HEMOGLOBIN 29.2 PG (27.0-31.0); MEAN CORPUSCULAR HGB CONC 33.9 % (33.0-36.5); MEAN CORPUSCULAR VOLUME 86.3 FL (78-98); MEAN PLATELET VOLUME 8.5 FL (7.4-10.4); MONOCYTES # (AUTO) 1.3 X10'3 (0-0.9); MONOCYTES % (AUTO) 6.7 % (2-12); NEUTROPHILS # (AUTO) 13.9 X10'3 (1.8-7.7); PLATELET COUNT 268 X10'3 (140-440); RED BLOOD COUNT 3.56 X10'6 (4.20-5.60); RED CELL DISTRIBUTION WIDTH 15.5 % (11.5-14.5); WHITE BLOOD COUNT 19.6 X10'3 (4.5-11.0)
[2017-10-02 05:46] LABS: ALBUMIN 2.1 G/DL (3.4-5.0); ANION GAP 5 (8-16); BLOOD UREA NITROGEN 12 MG/DL (7-18); BUN/CREATININE RATIO 14.8 (6.6-38.0); CALCIUM 8.4 MG/DL (8.5-10.1); CHLORIDE 99 MMOL/L (99-107); CREATININE 0.81 MG/DL (0.40-0.90); GLUCOSE 95 MG/DL (70-104); POTASSIUM 3.7 MMOL/L (3.5-5.1); SODIUM 137 MMOL/L (135-145); TOTAL CARBON DIOXIDE 33.2 MMOL/L (24-32); eGFR 73 ML/MIN
[2017-10-02] MEDS: HYDROcodone/acetaminophen 5mg/325mg tablet PO PRN ×3 (06:03→16:07)
[2017-10-02 08:08] VITALS: BP 113/64
[2017-10-02] MEDS: heparin, porcine 5000 units/ml vial SQ SCH ×2 (08:40→20:00)
[2017-10-02] MEDS: nicotine 21mg patch - 24 hr TD SCH (08:40)
[2017-10-02] MEDS: nystatin 500,000 unit/5ML UD oral suspension PO SCH ×4 (08:40→21:49)
[2017-10-02] MEDS: aspirin 325mg tablet PO SCH (08:41)
[2017-10-02] MEDS: docusate sod 100mg capsule PO SCH ×3 (08:41→21:52)
[2017-10-02] MEDS: carVEDilol 3.125mg tablet PO SCH ×2 (08:41→21:47)
[2017-10-02] MEDS: pantoprazole 40mg Tablet.DR PO SCH (08:41)
[2017-10-02] MEDS: busPIRone 5mg tablet PO SCH ×3 (08:41→21:47)
[2017-10-02] MEDS: guaiFENesin ER 600mg tablet PO SCH ×2 (08:41→21:48)
[2017-10-02] MEDS: vancomycin inj 1,250 MG in normal saline 250ml IV soln 250 ML IV SCH ×2 (08:51→21:52)
[2017-10-02] MEDS ORDERED: iohexol 300mg/ml 100ml inj. ONE (11:33)
[2017-10-02 12:20] VITALS: BP 111/64
[2017-10-02 18:00] VITALS: BP 139/75
[2017-10-02] MEDS: LORazepam 0.5 MG tablet PO PRN (20:04)
[2017-10-02] MEDS ORDERED: VANCOMYCIN LEVEL IV ONE (20:30)
[2017-10-02] MEDS: piperacillin/tazo 3.375gm/50ml 50 ML IV SCH (21:00)
[2017-10-02] MEDS: HYDROmorphone 2mg tablet PO ONE ×2 (21:05→21:47)
[2017-10-02] MEDS: diatr meglu/diatrizoate 30ml oral sol.-(3 dose) bottle PO SCH (21:44)
[2017-10-02] MEDS: lactobacillus rhamnosus 10,000 MMU CELLS/CAPSULE PO SCH (21:47)
[2017-10-02] MEDS: traZODone 150mg tablet PO SCH (21:47)
[2017-10-02] MEDS: oxcarbazepine 150mg tablet PO SCH (21:48)
[2017-10-02] MEDS ORDERED: vancomycin/NS 1 GM ADD-VANTAGE 250 ML IV SCH (22:00)
[2017-10-03] VITALS (9 sets, daily range): BP systolic 70–119; BP diastolic 42–69
[2017-10-03] MEDS: HYDROcodone/acetaminophen 5mg/325mg tablet PO PRN ×3 (00:28→19:27)
[2017-10-03] MEDS: piperacillin/tazo 3.375gm/50ml 50 ML IV SCH ×2 (01:18→08:08)
[2017-10-03] MEDS ORDERED: potassium Cl 20 mEq SR tablet PO STA (02:15)
[2017-10-03 05:22] LABS: BASOPHILS # (AUTO) 0.1 X10'3 (0-0.2); BASOPHILS % (AUTO) 0.4 % (0-1); EOSINOPHILS # (AUTO) 0.5 X10'3 (0-0.9); EOSINOPHILS % (AUTO) 2.8 % (0-6); HEMATOCRIT 28.9 % (35.0-45.0); HEMOGLOBIN 9.9 g/dl (12.0-16.0); LYMPHOCYTES # (AUTO) 2.3 X10'3 (1.1-4.8); LYMPHOCYTES % (AUTO) 12.4 % (21-51); MEAN CORPUSCULAR HEMOGLOBIN 29.3 PG (27.0-31.0); MEAN CORPUSCULAR HGB CONC 34.3 % (33.0-36.5); MEAN CORPUSCULAR VOLUME 85.3 FL (78-98); MEAN PLATELET VOLUME 8.5 FL (7.4-10.4); MONOCYTES # (AUTO) 1.6 X10'3 (0-0.9); MONOCYTES % (AUTO) 8.8 % (2-12); NEUTROPHILS # (AUTO) 13.7 X10'3 (1.8-7.7); NEUTROPHILS % (AUTO) 75.6 % (42-75); PLATELET COUNT 230 X10'3 (140-440); RED BLOOD COUNT 3.38 X10'6 (4.20-5.60); RED CELL DISTRIBUTION WIDTH 15.4 % (11.5-14.5); WHITE BLOOD COUNT 18.1 X10'3 (4.5-11.0)
[2017-10-03 05:25] LABS: ALANINE AMINOTRANSFERASE 55 U/L (12-78); ALBUMIN/GLOBULIN RATIO 0.5 (1.1-1.5); ALKALINE PHOSPHATASE 637 IU/L (46-116); ANION GAP 7 (8-16); ASPARTATE AMINO TRANSFERASE 36 U/L (10-37); BILIRUBIN,TOTAL 1.6 MG/DL (0.1-1.0); BLOOD UREA NITROGEN 14 MG/DL (7-18); CALCIUM 8.4 MG/DL (8.5-10.1); CHLORIDE 100 MMOL/L (99-107); CREATININE 1.08 MG/DL (0.40-0.90); GLUCOSE 112 MG/DL (70-104); LIPASE 268 U/L (73-393); POTASSIUM 3.5 MMOL/L (3.5-5.1); SODIUM 137 MMOL/L (135-145); TOTAL CARBON DIOXIDE 30.2 MMOL/L (24-32); TOTAL PROTEIN 5.9 G/DL (6.4-8.2); eGFR 52 ML/MIN
[2017-10-03] MEDS: oxyCODONE/APAP 10/325mg tablet PO PRN ×2 (05:45→14:14)
[2017-10-03] MEDS: aspirin 325mg tablet PO SCH (07:11)
[2017-10-03] MEDS: heparin, porcine 5000 units/ml vial SQ SCH ×2 (07:12→20:59)
[2017-10-03] MEDS: guaiFENesin ER 600mg tablet PO SCH ×2 (08:00→20:57)
[2017-10-03] MEDS: pantoprazole 40mg Tablet.DR PO SCH (08:00)
[2017-10-03] MEDS: lactobacillus rhamnosus 10,000 MMU CELLS/CAPSULE PO SCH ×2 (08:00→20:57)
[2017-10-03] MEDS: nystatin 500,000 unit/5ML UD oral suspension PO SCH ×4 (08:00→20:58)
[2017-10-03] MEDS: docusate sod 100mg capsule PO SCH ×3 (08:00→20:57)
[2017-10-03] MEDS: carVEDilol 3.125mg tablet PO SCH ×2 (08:07→20:00)
[2017-10-03] MEDS: busPIRone 5mg tablet PO SCH ×3 (08:07→21:02)
[2017-10-03] MEDS: diatr meglu/diatrizoate 30ml oral sol.-(3 dose) bottle PO SCH ×2 (08:08→21:00)
[2017-10-03] MEDS: nicotine 21mg patch - 24 hr TD SCH (08:08)
[2017-10-03] MEDS: ipratropium/albuterol 3ml nebule NEB PRN ×2 (08:14→20:38)
[2017-10-03] MEDS ORDERED: LIDOcaine 1%/PF (10mg/ml) 5ml vial ONE (08:24)
[2017-10-03] MEDS ORDERED: iohexol 300mg/ml 100ml inj. ONE (10:03)
[2017-10-03 10:30] LABS: GLUCOSE,BODY FLUID 95 MG/DL; LDH,BODY FLUID 743 U/L; TOTAL PROTEIN,BODY FLUID 3.5 G/DL
[2017-10-03 10:59] LABS: BFAPPEAR CLOUDY
[2017-10-03 11:00] LABS: BF MESOTHELIAL CELLS FEW; BF RBC COUNT 2175 /CU MM; BF WBC COUNT 3225 /CU MM (0-1000); BFCOLOR AMBER; BFVOLUME 60 ML; EOSINOPHILS,BODY FLUID 4 %; LYMPHOCYTES,BODY FLUID 11 %; MONOCYTES,BODY FLUID 10 %; NEUTROPHILS,BODY FLUID 75 %; PLEURAL FLUID PH 7.392 (7.63-7.65)
[2017-10-03 11:01] LABS: BFSOURCE RIGHT PLEURAL FLD
[2017-10-03] MEDS: clindamycin 150mg capsule PO SCH ×2 (14:18→20:57)
[2017-10-03] MEDS ORDERED: HYDROmorphone 2mg tablet PO PRN (20:05)
[2017-10-03] MEDS: traZODone 150mg tablet PO SCH (20:56)
[2017-10-03] MEDS: oxcarbazepine 150mg tablet PO SCH (20:57)
[2017-10-03] MEDS: temazepam 15mg capsule PO PRN (21:01)
[2017-10-04] VITALS: BP 117/71
[2017-10-04] MEDS: clindamycin 150mg capsule PO SCH ×4 (02:16→19:55)
[2017-10-04] MEDS: oxyCODONE/APAP 10/325mg tablet PO PRN (02:20)
[2017-10-04 05:08] LABS: BASOPHILS % (AUTO) 0.1 % (0-1); EOSINOPHILS # (AUTO) 0.4 X10'3 (0-0.9); EOSINOPHILS % (AUTO) 2.1 % (0-6); HEMATOCRIT 27.4 % (35.0-45.0); HEMOGLOBIN 9.3 g/dl (12.0-16.0); LYMPHOCYTES # (AUTO) 1.5 X10'3 (1.1-4.8); LYMPHOCYTES % (AUTO) 7.8 % (21-51); MEAN CORPUSCULAR HEMOGLOBIN 29.3 PG (27.0-31.0); MEAN CORPUSCULAR HGB CONC 34.1 % (33.0-36.5); MEAN CORPUSCULAR VOLUME 85.9 FL (78-98); MEAN PLATELET VOLUME 9.1 FL (7.4-10.4); MONOCYTES # (AUTO) 1.7 X10'3 (0-0.9); MONOCYTES % (AUTO) 9.2 % (2-12); NEUTROPHILS % (AUTO) 80.8 % (42-75); PLATELET COUNT 249 X10'3 (140-440); RED BLOOD COUNT 3.19 X10'6 (4.20-5.60); RED CELL DISTRIBUTION WIDTH 15.4 % (11.5-14.5); WHITE BLOOD COUNT 18.5 X10'3 (4.5-11.0)
[2017-10-04 05:30] LABS: ALBUMIN 2.2 G/DL (3.4-5.0); ANION GAP 9 (8-16); BLOOD UREA NITROGEN 15 MG/DL (7-18); BUN/CREATININE RATIO 13.8 (6.6-38.0); CALCIUM 8.5 MG/DL (8.5-10.1); CHLORIDE 96 MMOL/L (99-107); CREATININE 1.09 MG/DL (0.40-0.90); GLUCOSE 118 MG/DL (70-104); SODIUM 133 MMOL/L (135-145); TOTAL CARBON DIOXIDE 28.1 MMOL/L (24-32); eGFR 52 ML/MIN
[2017-10-04 07:00] VITALS: BP 106/84
[2017-10-04] MEDS: guaiFENesin ER 600mg tablet PO SCH ×2 (07:45→19:55)
[2017-10-04] MEDS: carVEDilol 3.125mg tablet PO SCH (07:45)
[2017-10-04] MEDS: aspirin 325mg tablet PO SCH (07:46)
[2017-10-04] MEDS: docusate sod 100mg capsule PO SCH ×3 (07:46→21:11)
[2017-10-04] MEDS: heparin, porcine 5000 units/ml vial SQ SCH ×2 (07:46→19:56)
[2017-10-04] MEDS: pantoprazole 40mg Tablet.DR PO SCH (07:47)
[2017-10-04] MEDS: busPIRone 5mg tablet PO SCH ×3 (07:47→21:11)
[2017-10-04] MEDS: nicotine 21mg patch - 24 hr TD SCH (07:47)
[2017-10-04] MEDS: lactobacillus rhamnosus 10,000 MMU CELLS/CAPSULE PO SCH ×2 (07:47→19:55)
[2017-10-04] MEDS: HYDROcodone/acetaminophen 5mg/325mg tablet PO PRN ×4 (07:48→23:00)
[2017-10-04] MEDS: nystatin 500,000 unit/5ML UD oral suspension PO SCH ×2 (07:56→13:32)
[2017-10-04 12:17] VITALS: BP 95/58
[2017-10-04] MEDS: ipratropium/albuterol 3ml nebule NEB PRN ×2 (17:23→23:10)
[2017-10-04] MEDS: traZODone 150mg tablet PO SCH (21:11)
[2017-10-04] MEDS: temazepam 15mg capsule PO PRN (23:00)
[2017-10-05] VITALS: BP 95/53
[2017-10-05] MEDS: clindamycin 150mg capsule PO SCH ×3 (02:04→14:19)
[2017-10-05] MEDS: HYDROcodone/acetaminophen 5mg/325mg tablet PO PRN ×4 (03:19→17:14)
[2017-10-05 05:15] LABS: BASOPHILS % (AUTO) 0.2 % (0-1); EOSINOPHILS # (AUTO) 0.2 X10'3 (0-0.9); EOSINOPHILS % (AUTO) 1.5 % (0-6); HEMATOCRIT 27.1 % (35.0-45.0); HEMOGLOBIN 9.2 g/dl (12.0-16.0); LYMPHOCYTES # (AUTO) 2.3 X10'3 (1.1-4.8); LYMPHOCYTES % (AUTO) 14.8 % (21-51); MEAN CORPUSCULAR HEMOGLOBIN 29.3 PG (27.0-31.0); MEAN CORPUSCULAR HGB CONC 33.8 % (33.0-36.5); MEAN CORPUSCULAR VOLUME 86.7 FL (78-98); MEAN PLATELET VOLUME 8.9 FL (7.4-10.4); MONOCYTES # (AUTO) 1.8 X10'3 (0-0.9); MONOCYTES % (AUTO) 11.7 % (2-12); NEUTROPHILS # (AUTO) 11.2 X10'3 (1.8-7.7); NEUTROPHILS % (AUTO) 71.8 % (42-75); PLATELET COUNT 275 X10'3 (140-440); RED BLOOD COUNT 3.13 X10'6 (4.20-5.60); WHITE BLOOD COUNT 15.6 X10'3 (4.5-11.0)
[2017-10-05 05:49] LABS: ALBUMIN 2.1 G/DL (3.4-5.0); ANION GAP 9 (8-16); BLOOD UREA NITROGEN 12 MG/DL (7-18); BUN/CREATININE RATIO 12.4 (6.6-38.0); CALCIUM 8.6 MG/DL (8.5-10.1); CHLORIDE 99 MMOL/L (99-107); CREATININE 0.97 MG/DL (0.40-0.90); GLUCOSE 109 MG/DL (70-104); POTASSIUM 3.7 MMOL/L (3.5-5.1); SODIUM 136 MMOL/L (135-145); eGFR 59 ML/MIN
[2017-10-05 07:00] VITALS: BP 135/75
[2017-10-05] MEDS: pantoprazole 40mg Tablet.DR PO SCH (07:22)
[2017-10-05] MEDS: docusate sod 100mg capsule PO SCH ×2 (07:22→12:52)
[2017-10-05] MEDS: lactobacillus rhamnosus 10,000 MMU CELLS/CAPSULE PO SCH (07:23)
[2017-10-05] MEDS: busPIRone 5mg tablet PO SCH ×2 (07:24→12:52)
[2017-10-05] MEDS: guaiFENesin ER 600mg tablet PO SCH (07:25)
[2017-10-05] MEDS: aspirin 325mg tablet PO SCH (07:26)
[2017-10-05] MEDS: nicotine 21mg patch - 24 hr TD SCH (07:27)
[2017-10-05] MEDS: heparin, porcine 5000 units/ml vial SQ SCH (07:28)
[2017-10-05] MEDS: ipratropium/albuterol 3ml nebule NEB PRN ×2 (07:32→11:14)
[2017-10-05] MEDS ORDERED: CefTRIAXone/D5W-Rocephin 1gm 50 ML IV SCH (08:00)
[2017-10-05] MEDS: LORazepam 0.5 MG tablet PO PRN ×2 (10:47→17:13)
[2017-10-05 11:52] VITALS: BP 104/72
[2017-10-05] MEDS ORDERED: methylPREDNISolone sod succ 125mg/2ml vial IV SCH (16:00)
== END 2017-10-05 17:39 | disposition short-term general hospital (02) | DRG 190 ==
LOC: ER 13:10 → ED HOLD 17:09 → PCU 3S 19:24 → SUR 3N 09-25 22:10
PROVIDERS: ADMIT Internal Medicine; ATTEND Family Medicine
PROC: 0W993ZZ Drainage of Right Pleural Cavity, Percutaneous Approach (ICD-10-PCS; principal; 2017-10-03)
PROC: BW201ZZ Computerized Tomography (CT Scan) of Abdomen using Low Osmolar Contrast (ICD-10-PCS; 2017-10-03)
DX: I21.4 Non-ST elevation (NSTEMI) myocardial infarction (principal); J15.212 Pneumonia due to Methicillin resistant Staphylococcus aureus; J18.1 Lobar pneumonia, unspecified organism; J90 Pleural effusion, not elsewhere classified; K83.0 Cholangitis; I31.3 Pericardial effusion (noninflammatory); E87.1 Hypo-osmolality and hyponatremia; E27.9 Disorder of adrenal gland, unspecified; K86.9 Disease of pancreas, unspecified; E66.3 Overweight; Z68.25 Body mass index [BMI] 25.0-25.9, adult; E78.00 Pure hypercholesterolemia, unspecified; F17.200 Nicotine dependence, unspecified, uncomplicated; G89.29 Other chronic pain; J44.0 Chronic obstructive pulmonary disease with (acute) lower respiratory infection; J44.1 Chronic obstructive pulmonary disease with (acute) exacerbation; M19.90 Unspecified osteoarthritis, unspecified site; Z96.659 Presence of unspecified artificial knee joint
CPT/HCPCS: 32555; 36415; 71045; 71046; 71260; 71275; 74177; 78452; 80048; 80053; 80061; 80202; 82945; 83605; 83615; 83690; 83735; 83880; 83930; 83935; 83986; 84145; 84157; 84300; 84484; 85025; 85610; 85651; 85730; 86140; 87040; 87070; 87077; 87186; 89051; 93005; 93017; 93306; 94640; 94668; 94760; 96365; 96375; 97110; 97116; 97161; 97530; 99285; A6446; A6449; A9500; C1769; C9113; J0280; J0696; J1644; J1956; J2001; J2543; J2785; J2930; J3010; J3370; J3475; J3490; J7030; Q9963; Q9967

== ENCOUNTER 2020-05-03 19:36 | Emergency (ER) | payer MEDICAID ==
[~2020-05-03] VITALS: Ht 144.8 cm; Wt 57.0 kg
[~2020-05-03 19:36] MED LIST changes: +CLON0.1T PO; +HYDR-3927 PO; -LORA0.5T PO; +NAPR-996 PO; -NYST1000 PO; +OMEP20TA5 PO; -OXCA150T5 PO; -PANT40TA4 PO; +PANT40TA54 PO; -PROMETHAZINE/CODEINE PO; -[UNRECOGNIZED DRUG - OTHER] PO
[2020-05-03 20:15] LABS: BASOPHILS # (AUTO) 0.1 X10'3 (0-0.2); BASOPHILS % (AUTO) 0.6 % (0-1); EOSINOPHILS # (AUTO) 0.2 X10'3 (0-0.9); HEMATOCRIT 37.2 % (35.0-45.0); HEMOGLOBIN 12.4 g/dl (12.0-16.0); LYMPHOCYTES # (AUTO) 2.1 X10'3 (1.1-4.8); LYMPHOCYTES % (AUTO) 23.1 % (21-51); MEAN CORPUSCULAR HEMOGLOBIN 27.8 PG (27.0-31.0); MEAN CORPUSCULAR HGB CONC 33.4 g/dL (33.0-36.5); MEAN CORPUSCULAR VOLUME 83.1 FL (78-98); MEAN PLATELET VOLUME 8.2 FL (7.4-10.4); MONOCYTES # (AUTO) 0.6 X10'3 (0-0.9); MONOCYTES % (AUTO) 6.2 % (2-12); NEUTROPHILS # (AUTO) 6.2 X10'3 (1.8-7.7); NEUTROPHILS % (AUTO) 68.1 % (42-75); PLATELET COUNT 256 X10'3 (140-440); RED BLOOD COUNT 4.47 X10'6 (4.20-5.60); RED CELL DISTRIBUTION WIDTH 14.4 % (11.5-14.5); WHITE BLOOD COUNT 9.2 X10'3 (4.5-11.0)
[2020-05-03 20:23] LABS: CLARITY,URINE CLEAR (Clear); COLOR,URINE YELLOW (Yellow); GLUCOSE, URINE NEGATIVE (Neg); KETONES,URINE NEGATIVE (Neg); LEUKOCYTE ESTERASE ,URINE TRACE (Neg); NITRITES, URINE NEGATIVE (Neg); OCCULT BLOOD,URINE NEGATIVE (Neg); PROTEIN,URINE NEGATIVE (Neg); UROBILINOGEN,URINE 0.2 E.U/dL (0.2-1.0)
[2020-05-03 20:26] LABS: URINE HCG NEGATIVE (NEG)
[2020-05-03 20:30] LABS: UA COLLECTION TYPE CLN CATCH MIDSTREAM
[2020-05-03 20:31] LABS: BACTERIA,URINE 1+ /HPF (Neg); RBC,URINE 0-2 /HPF (0-2); SQUAMOUS EPITHELIAL CELL,UR FEW /LPF (FEW); WBC,URINE 0-4 /HPF (0-4)
[2020-05-03 20:32] LABS: ALANINE AMINOTRANSFERASE 15 U/L (12-78); ALBUMIN/GLOBULIN RATIO 0.5 (1.1-1.5); ALKALINE PHOSPHATASE 523 IU/L (46-116); ANION GAP 11 (8-16); ASPARTATE AMINO TRANSFERASE 39 U/L (10-37); BILIRUBIN,TOTAL 0.5 MG/DL (0.1-1.0); BLOOD UREA NITROGEN 10 MG/DL (7-18); BUN/CREATININE RATIO 10.3 (6.6-38.0); CHLORIDE 100 MMOL/L (99-107); CREATININE 0.97 MG/DL (0.40-0.90); LIPASE 150 U/L (73-393); POTASSIUM 3.1 MMOL/L (3.5-5.1); SODIUM 138 MMOL/L (135-145); TOTAL CARBON DIOXIDE 26.6 MMOL/L (24-32); TOTAL PROTEIN 8.7 G/DL (6.4-8.2); eGFR 59 ML/MIN
[2020-05-03 20:34] LABS: GLUCOSE 99 MG/DL (70-104)
[2020-05-03] MEDS ORDERED: polyethylene glycol 3350 17gm powd pack PO STA (21:14)
[2020-05-03] MEDS ORDERED: magnesium citrate 296ml oral solution PO ONE (21:15)
[2020-05-03] MEDS ORDERED: glycerin ADULT rectal suppository RC ONE (21:20)
[2020-05-03] MEDS ORDERED: bisacodyl 10mg suppository rectal RC STA (21:26)
--- NOTE | 2020-05-03 22:18 | NUR ---
MANUAL DISIMPACTION AND SUPPOSITORY PLACED BY ED [facility]. RECEIVED VERBAL ORDER FOR NS 1000ML BOLUS IV. THIS RN CHAPERONED PROCEDURE
[2020-05-03] MEDS ORDERED: normal saline 1000ml 1,000 ML IV ONE (22:20)
--- NOTE | 2020-05-03 23:14 | NUR ---
ADM 1/2 OF THE SSE. SHE RETAINED IT FOR ABOUT 4 MINUTES. UP TO COMMODE NOW.
[2020-05-03] MEDS ORDERED: ondansetron/PF 4mg/2ml inj IV STA (23:28)
--- NOTE | 2020-05-03 23:28 | NUR ---
went to check on her, and she is vomiting. I went to [facility] and he said I could give her some zofran IV, so I ordered that.
--- NOTE | 2020-05-03 23:39 | NUR ---
adm / of the SSE and had her retain it for 5 min and now she is on the commode.
--- NOTE | 2020-05-04 00:09 | NUR ---
PT REPORTS HAVING WATERY STOOL AND SMALL "PEBBLE-LIKE" STOOL OUT WELL. TAI PA AT BEDSIDE TO SHARE PLAN OF CARE AND PLAN FOR DISCHARGE. TAI AND PT AGREED TO FINISH REST OF ENEMA ADMIN LAST 1/4 OF ENEMA AND PT HELD IN APPROX 5 MIN. PT NOW ON BSC, DAUGHTER IN ROOM
[2020-05-04] MEDS ORDERED: BISA10SU60 RC (00:23)
[2020-05-04] MEDS ORDERED: MAGN296S68 PO (00:23)
[2020-05-04] MEDS ORDERED: POLY17PO10 PO (00:23)
[2020-05-04] MEDS ORDERED: potassium chloride 10mEq ER tablet PO STA (00:34)
[2020-05-04 00:50] VITALS: BP 160/81
== END 2020-05-04 00:54 | disposition home or self-care (01) ==
LOC: ER 19:36
DX: K59.03 Drug induced constipation (principal); R10.84 Generalized abdominal pain; R11.2 Nausea with vomiting, unspecified; R19.7 Diarrhea, unspecified; G89.29 Other chronic pain; E78.00 Pure hypercholesterolemia, unspecified; J44.9 Chronic obstructive pulmonary disease, unspecified; Z90.710 Acquired absence of both cervix and uterus; Z72.89 Other problems related to lifestyle; Z88.5 Allergy status to narcotic agent; Z88.8 Allergy status to other drugs, medicaments and biological substances; Z79.899 Other long term (current) drug therapy
CPT/HCPCS: 36415; 74018; 80053; 81001; 81025; 83690; 85025; 87088; 96361; 96374; 99284; J2405; J7030

== ENCOUNTER 2021-12-17 11:42 | Inpatient (IN) | payer MEDICAID ==
[~2021-12-17] VITALS: Ht 142.2 cm; Wt 58.2 kg
[~2021-12-17 11:42] MED LIST changes: +BISA10SU60 RC; +MAGN296S68 PO; +OMEP20TA43 PO; -OMEP20TA5 PO; +etomidate 2mg/ml inj. ONE; +rocuronium 10mg/ml inj IV ONE; +sod chloride 0.9% 10ml flush syringe IV ONE
[2021-12-17 12:38] LABS: BASOPHILS % (AUTO) 0.1 % (0-1); EOSINOPHILS % (AUTO) 0 % (0-6); HEMATOCRIT 38.1 % (35.0-45.0); HEMOGLOBIN 12.3 g/dl (12.0-16.0); LYMPHOCYTES # (AUTO) 0.5 X10'3 (1.1-4.8); MEAN CORPUSCULAR HEMOGLOBIN 26.8 PG (27.0-31.0); MEAN CORPUSCULAR HGB CONC 32.3 g/dL (33.0-36.5); MEAN CORPUSCULAR VOLUME 82.8 FL (78-98); MEAN PLATELET VOLUME 9.3 FL (7.4-10.4); MONOCYTES # (AUTO) 0.1 X10'3 (0-0.9); MONOCYTES % (AUTO) 1.6 % (2-12); NEUTROPHILS # (AUTO) 6.5 X10'3 (1.8-7.7); NEUTROPHILS % (AUTO) 91.3 % (42-75); PLATELET COUNT 152 X10'3 (140-440); RED CELL DISTRIBUTION WIDTH 16.6 % (11.5-14.5); WHITE BLOOD COUNT 7.1 X10'3 (4.5-11.0)
[2021-12-17 12:54] LABS: ALANINE AMINOTRANSFERASE 15 U/L (12-78); ALBUMIN 2.6 G/DL (3.4-5.0); ALBUMIN/GLOBULIN RATIO 0.5 (1.1-1.5); ALKALINE PHOSPHATASE 170 IU/L (46-116); ANION GAP 17 (8-16); ASPARTATE AMINO TRANSFERASE 19 U/L (10-37); BILIRUBIN,TOTAL 2.1 MG/DL (0.1-1.0); BLOOD UREA NITROGEN 24 MG/DL (7-18); CALCIUM 8.3 MG/DL (8.5-10.1); CHLORIDE 98 MMOL/L (99-107); CREATININE 1.71 MG/DL (0.40-0.90); GLUCOSE 99 MG/DL (70-104); LIPASE < 50 U/L (73-393); POTASSIUM 3.2 MMOL/L (3.5-5.1); SODIUM 140 MMOL/L (135-145); TOTAL CARBON DIOXIDE 25.3 MMOL/L (24-32); TOTAL PROTEIN 7.4 G/DL (6.4-8.2); eGFR 30 ML/MIN
[2021-12-17 13:07] LABS: APTT 35 SECONDS (22-32)
[2021-12-17 13:44] LABS: ANISOCYTOSIS 1+; PLATELET ESTIMATE NORMAL; TOTAL CELLS COUNTED 100
[2021-12-17 13:45] LABS: ABG BASE EXCESS 3.1 mmol/L (-2.0-2.0); ABG HCO3 26.4 mmol/L (22.0-26.0); ABG PO2 (T) 45.9 mmHg (75.0-100.0); ALLEN'S TEST POSITIVE; FCOHb 1.4 % (0.0-3.9); FLOW 4 L/min; FMetHb 0.2 % (0.0-1.5); FO2Hb 84.6 % (94-97); TOTAL HEMOGLOBIN 12.7 G/dl (12.0-16.0)
[2021-12-17] MEDS ORDERED: potassium Cl 20 mEq SR tablet PO ONE (13:50)
[2021-12-17] MEDS ORDERED: potassium CL 10mEq/100ml bag 100 ML IV ONE (14:50)
[2021-12-17] MEDS ORDERED: vancomycin/NS 1 GM ADD-VANTAGE 250 ML IV ONE (15:15)
[2021-12-17] MEDS ORDERED: piperacillin/tazo 3.375gm/50ml 50 ML IV ONE (15:15)
[2021-12-17] MEDS: magnesium 2GM in 50ml NS 50 ML IV SCH ×2 (15:41→16:49)
[2021-12-17] MEDS ORDERED: oxyCODONE/APAP 10/325mg tablet PO ONE (15:50)
[2021-12-17] MEDS ORDERED: mag hydrox/Alum hydrox/simeth 30ml oral suspension PO PRN (16:50)
[2021-12-17] MEDS ORDERED: potassium CL 10mEq/100ml bag 100 ML IV PRN (16:50)
[2021-12-17] MEDS ORDERED: magnesium hydroxide 30ml (MOM) UD suspension PO PRN (16:50)
[2021-12-17] MEDS ORDERED: PERFLUTREN PROTEIN-A MICROSPHR (Optison) 0.22 MG/ML 3ML VIAL IV ONE (16:50)
[2021-12-17] MEDS ORDERED: POTASSIUM BICARB 20meq eff tab 20 MEQ TABLET.EFF PO PRN ×2 (16:50)
[2021-12-17] MEDS ORDERED: ondansetron 4mg rapidly disintigrating tab PO PRN (16:50)
[2021-12-17] MEDS ORDERED: ipratropium/albuterol 3ml nebule NEB PRN (16:50)
[2021-12-17] MEDS ORDERED: magnesium Cl slow-release 64mg tablet PO PRN (16:50)
[2021-12-17] MEDS ORDERED: magnesium 2GM in 50ml NS 50 ML IV PRN (16:50)
[2021-12-17] MEDS ORDERED: acetaminophen 325mg tablet PO PRN ×2 (16:50)
[2021-12-17] MEDS ORDERED: ondansetron/PF 4mg/2ml inj IV PRN (16:50)
[2021-12-17] MEDS ORDERED: bisacodyl 10mg suppository rectal RC PRN (16:50)
[2021-12-17] MEDS: normal saline 1000ml 1,000 ML IV SCH ×2 (16:50→20:57)
[2021-12-17] MEDS ORDERED: metoclopramide 5 mg/ml inj IV PRN (16:50)
[2021-12-17] MEDS ORDERED: magnesium 4gm in 100ml NS 100 ML IV PRN (16:50)
[2021-12-17] MEDS ORDERED: furosemide 10 MG/1 ML 10ml inj IV ONE (16:55)
--- NOTE | 2021-12-17 17:14 | NUR ---
PURE WICK APPLIED AT THIS TIME FOR PATIENT COMFORT.
[2021-12-17] MEDS: ipratropium/albuterol 3ml nebule NEB SCH (18:35)
[2021-12-17] MEDS ORDERED: OXYC1TAB17 PO (19:18)
[2021-12-17] MEDS ORDERED: FLUT15.87 NAS (19:18)
[2021-12-17] MEDS ORDERED: TIOT4MIS3 PO (19:18)
[2021-12-17] MEDS ORDERED: FENO54TA PO (19:18)
[2021-12-17] MEDS ORDERED: HYDR-3686 PO (19:18)
[2021-12-17] MEDS ORDERED: BUSP10TA3 PO (19:18)
[2021-12-17] MEDS ORDERED: URSO300C2 PO (19:25)
[2021-12-17] MEDS ORDERED: ALEN70TA80 PO (19:30)
[2021-12-17] MEDS ORDERED: LIDO35.4 TOP (19:30)
[2021-12-17] MEDS ORDERED: TRAZ150T78 PO (19:30)
[2021-12-17] MEDS ORDERED: ALB0.5UD NEB (19:30)
[2021-12-17] MEDS ORDERED: [UNRECOGNIZED DRUG - CODE] PO (19:30)
[2021-12-17] MEDS ORDERED: OMEP20CA16 PO (19:30)
[2021-12-17] MEDS ORDERED: ONDA-103 PO (19:30)
[2021-12-17] MEDS ORDERED: acetylcysteine sol. 200 MG/ML 4ml vial PO STA (19:34)
[2021-12-17] MEDS ORDERED: ipratropium/albuterol 3ml nebule NEB ONE (19:35)
[2021-12-17] MEDS ORDERED: ALBU17AE26 PO (19:36)
--- NOTE | 2021-12-17 19:47 | NUR ---
PT STARTED TRIPODING AND NOTED ANXIETY, SATTING IN THE MID 80S WITH HI FLOW ON 10L O2. SWITCHED PT TO A NON-REBREATHER AT 15L O2. PAGED RT. SPOKE TO DR RG PT WAS IN RESPIRATORY DISTRESS. DR MURPHY ASSESSED PT AND CONSULTED WITH RT IN THE ROOM. DR RG PUT IN MEDICATION ORDERS FOR RT. I CALLED DR POOLE AND UPDATED HIM ON PT'S CONDITION. PT NOW SATTING AT 94% ON 15L NON-REBREATHER. DR POOLE GAVE VO FOR A SHAH CATHETER TO MONITOR URINE OUTPUT, FLUID BOLUS OF 250 CC OF NS NOW, AND TO PLACE PT ON CPAP. DR POOLE WAS REMINDED OF PT'S BNP LAB VALUES. RT HAS BEEN NOTIFIED OF DR POOLE'S REQUEST FOR CPAP.
[2021-12-17] MEDS: docusate sod 100mg capsule PO SCH (20:00)
[2021-12-17] MEDS: K and/or MAG REPLACEMENT MC SCH (20:00)
[2021-12-17] MEDS ORDERED: normal saline 1000ml 1,000 ML IV ONE (20:05)
--- NOTE | 2021-12-17 20:25 | NUR ---
PT SATTING BETTER BUT STATES ANXIETY FROM BEING ON A CPAP. REQUESTING MEDS FOR ANXIETY. I CALLED DR POOLE AND RECIEVED VO FOR 0.5 MG ATIVAN IV TO BE GIVEN NOW. ORDER REPEATED BACK FOR ACCURACY AND PLACED.
[2021-12-17] MEDS ORDERED: LORazepam 2 mg/ml vial IV ONE (20:30)
[2021-12-17] MEDS: nicotine 14mg patch - 24hr TD SCH (20:39)
[2021-12-17] MEDS: heparin, porcine 5000 units/ml vial SQ SCH (20:40)
[2021-12-17 21:31] LABS: ABG BASE EXCESS -2.6 mmol/L (-2.0-2.0); ABG HCO3 22.1 mmol/L (22.0-26.0); ABG OXYGEN SATURATION 97.6 % (94-97); ABG PCO2 (T) 38.2 mmHg (32.0-45.0); ABG PO2 (T) 112.2 mmHg (75.0-100.0); ALLEN'S TEST POSITIVE; FCOHb 0.2 % (0.0-3.9); FMetHb 0.1 % (0.0-1.5); FO2Hb 97.3 % (94-97); PATIENT TEMPERATURE 37.2; TOTAL HEMOGLOBIN 12.4 G/dl (12.0-16.0)
[2021-12-17 21:35] LABS: CLARITY,URINE SLIGHTLY CLOUDY (Clear); GLUCOSE, URINE NEGATIVE (Neg); KETONES,URINE NEGATIVE (Neg); LEUKOCYTE ESTERASE ,URINE NEGATIVE (Neg); NITRITES, URINE NEGATIVE (Neg); OCCULT BLOOD,URINE NEGATIVE (Neg); PROTEIN,URINE 30 mg/dl (Neg)
[2021-12-17 21:44] LABS: COLOR,URINE DARK YELLOW (Yellow); UA COLLECTION TYPE FOLEY CATH
[2021-12-17 21:45] LABS: BACTERIA,URINE 1+ /HPF (Neg); RBC,URINE 0-2 /HPF (0-2); SQUAMOUS EPITHELIAL CELL,UR FEW /LPF (FEW); WBC,URINE 0-4 /HPF (0-4)
[2021-12-17 22:00] VITALS: BP 136/60
[2021-12-17] MEDS: oxyCODONE/APAP 10/325mg tablet PO PRN (23:02)
[2021-12-18] VITALS (20 sets, daily range): BP systolic 83–149; BP diastolic 38–61
[2021-12-18] MEDS: piperacillin/tazo 3.375gm/50ml 50 ML IV SCH ×2 (00:09→09:39)
[2021-12-18] MEDS: ipratropium/albuterol 3ml nebule NEB SCH ×6 (00:35→23:22)
[2021-12-18 00:55] LABS: ABG BASE EXCESS -3.3 mmol/L (-2.0-2.0); ABG HCO3 22.3 mmol/L (22.0-26.0); ABG PO2 (T) 57.4 mmHg (75.0-100.0); ALLEN'S TEST POSITIVE; FCOHb 0.3 % (0.0-3.9); FLOW 15 L/min; FMetHb 0.3 % (0.0-1.5); FO2Hb 89.5 % (94-97); PATIENT TEMPERATURE 36.4; TOTAL HEMOGLOBIN 12.5 G/dl (12.0-16.0)
[2021-12-18] MEDS ORDERED: hydrOXYzine 25 MG tablet PO ONE (01:05)
--- NOTE | 2021-12-18 01:50 | NUR ---
Patient currently resting quietly, wearing nonrebreather at 15LPM. Recent ABG shows patient trending more acidotic, will continue to monitor. Some home meds ordered for chronic pain control and to help patient sleep, and with itching. Patient HR improved after CPAP removed, RT aware and will continue to monitor patient as well. Patient HR on arrival to unit was in 130s, and RR in 30s, around 2345 patient HR in 140s and RR in 40s. Dr Suazo aware, requesting strict output on the hour via wayne, and RT zulma another set of ABGs. Continuing to monitor patient closely.
[2021-12-18] MEDS: traZODone 150mg tablet PO SCH ×2 (02:27→20:00)
--- NOTE | 2021-12-18 02:31 | NUR ---
Page sent to RT, patient states feeling more SOB, O2 88% on 15L nonrebreather. Page sent to RT.
[2021-12-18] MEDS ORDERED: ringers solution, lacted 1,000 ML IV ONE (03:10)
[2021-12-18] MEDS: normal saline 1000ml 1,000 ML IV SCH (03:20)
--- NOTE | 2021-12-18 03:39 | NUR ---
Dr Suazo called at 0235 regaring pt BP, 86/49, HR 113, feeling more SOB. RT in room assessing patient and possibly will place on heated hiflow O2. Dr gave orders for fluids and monitoring urine output and HR. Attempting to get 2nd IV access. Patient has zosyn infusing for sepsis and not compatible with LR bolus. NS was increased from 20ml/hr to 100ml/hr. Once 2nd IV access obtained will give LR bolus.
[2021-12-18] MEDS: oxyCODONE/APAP 10/325mg tablet PO PRN ×2 (04:56→12:50)
--- NOTE | 2021-12-18 04:59 | NUR ---
Rn paged RT, [phone] [facility]- pt reports feeling SOB again, RR 34. O2 was 96, now 91%. Thanks Ronel
[2021-12-18 07:00] LABS: BASOPHILS % (AUTO) 0.1 % (0-1); EOSINOPHILS % (AUTO) 0.1 % (0-6); HEMATOCRIT 35.6 % (35.0-45.0); HEMOGLOBIN 11.5 g/dl (12.0-16.0); LYMPHOCYTES # (AUTO) 1.4 X10'3 (1.1-4.8); LYMPHOCYTES % (AUTO) 6.6 % (21-51); MEAN CORPUSCULAR HEMOGLOBIN 27.1 PG (27.0-31.0); MEAN CORPUSCULAR HGB CONC 32.3 g/dL (33.0-36.5); MEAN CORPUSCULAR VOLUME 84.1 FL (78-98); MEAN PLATELET VOLUME 9.9 FL (7.4-10.4); MONOCYTES # (AUTO) 0.3 X10'3 (0-0.9); MONOCYTES % (AUTO) 1.5 % (2-12); NEUTROPHILS % (AUTO) 91.7 % (42-75); PLATELET COUNT 196 X10'3 (140-440); RED BLOOD COUNT 4.24 X10'6 (4.20-5.60); RED CELL DISTRIBUTION WIDTH 16.3 % (11.5-14.5); WHITE BLOOD COUNT 21.8 X10'3 (4.5-11.0)
[2021-12-18 07:17] LABS: ALANINE AMINOTRANSFERASE 13 U/L (12-78); ALBUMIN 2.1 G/DL (3.4-5.0); ALBUMIN/GLOBULIN RATIO 0.5 (1.1-1.5); ALKALINE PHOSPHATASE 124 IU/L (46-116); ANION GAP 15 (8-16); ASPARTATE AMINO TRANSFERASE 40 U/L (10-37); BILIRUBIN,TOTAL 2.5 MG/DL (0.1-1.0); BLOOD UREA NITROGEN 39 MG/DL (7-18); CHLORIDE 99 MMOL/L (99-107); CHOLESTEROL 110 MG/DL (0-200); CREATININE 2.17 MG/DL (0.40-0.90); GLUCOSE 60 MG/DL (70-104); HDL CHOLESTEROL 11 MG/DL (35-60); LDL CHOLESTEROL 29 MG/DL (50-100); MAGNESIUM 2.4 MG/DL (1.5-2.4); PHOSPHORUS 2.8 MG/DL (2.3-4.5); POTASSIUM 3.6 MMOL/L (3.5-5.1); SODIUM 136 MMOL/L (135-145); TOTAL CARBON DIOXIDE 21.6 MMOL/L (24-32); TOTAL PROTEIN 6.2 G/DL (6.4-8.2); TRIGLYCERIDES 288 MG/DL (20-135); eGFR 23 ML/MIN
[2021-12-18 07:25] LABS: TOTAL CELLS COUNTED 100
[2021-12-18 07:26] LABS: ANISOCYTOSIS 1+; LARGE PLATELETS FEW; PLATELET ESTIMATE NORMAL
[2021-12-18] MEDS ORDERED: furosemide 40mg/4ml inj IV SCH (08:00)
[2021-12-18] MEDS ORDERED: normal saline 1000ml 1,000 ML IV SCH (08:35)
--- NOTE | 2021-12-18 09:28 | NUR ---
Paged Dr. Gilmore asking if we could get some ativan ordered for a patient with anxiety related to increased work of breathing. PAGER ID: [phone] MESSAGE: [phone], Leon Valerio. Pt is having a lot of anxiety, she has been having a hard time breathing. Would you like to order some Ativan for her? Cait [facility] [id number].
[2021-12-18] MEDS: nicotine 14mg patch - 24hr TD SCH (09:39)
[2021-12-18] MEDS: pantoprazole 40mg Tablet.DR PO SCH (09:40)
[2021-12-18] MEDS: heparin, porcine 5000 units/ml vial SQ SCH (09:40)
[2021-12-18] MEDS: docusate sod 100mg capsule PO SCH ×2 (09:40→20:00)
[2021-12-18] MEDS ORDERED: LORazepam 0.5 MG tablet PO PRN ×2 (11:00→12:05)
[2021-12-18] MEDS ORDERED: LORazepam 2 mg/ml vial IV PRN ×2 (11:00→12:05)
--- NOTE | 2021-12-18 11:19 | NUR ---
Malnutrition consult: Pt denies an recent wt loss at time of assessment, no visible signs of muscle or fat wasting observed at bedside. No edema noted. At this time pt does not meet minimum criteria for malnutrition. Pt admitted w/ sepsis secondary to PNA, and ELÍAS w/ CKD per EMR. currently on Full liquid diet pending PO. Recommend advancing to Regular diet as medically appropriate. Consider fish oil for elevated triglycerides instead of Heart healthy diet if MD agreeable. LBM 12/17. Will continue to monitor PO trends and make recommendations as appropriate. Recs: 1. Advance to Regular diet as tolerated 2. Monitor need for ONS 3. Bowel care per rx 4. Scaled wts Addendum: 12/18/21 at [address]19 [address] Amended: Links added.
--- NOTE | 2021-12-18 11:23 | NUR ---
Paged Dr. Gilmore regarding patient liver medications and if he is going to start her on them while shes here. PAGER ID: [phone] MESSAGE: [phone]. Patient is asking about her liver medications and if you will be starting her on them while she is here, could you call me so I can better explain? Cait [facility] 3921.
[2021-12-18] MEDS ORDERED: busPIRone 5mg tablet PO PRN (12:15)
[2021-12-18 14:41] LABS: ABG BASE EXCESS -9.4 mmol/L (-2.0-2.0); ABG HCO3 17.6 mmol/L (22.0-26.0); ABG OXYGEN SATURATION 85.8 % (94-97); ABG PCO2 (T) 42.8 mmHg (32.0-45.0); ABG PO2 (T) 58.5 mmHg (75.0-100.0); ALLEN'S TEST POSITIVE; FCOHb 0.3 % (0.0-3.9); FMetHb 0.4 % (0.0-1.5); FO2Hb 85.2 % (94-97); RESPIRATORY RATE 8 b/min; TOTAL HEMOGLOBIN 11.5 G/dl (12.0-16.0)
--- NOTE | 2021-12-18 15:38 | NUR ---
PAGED DR. FLANAGAN REGARDING PATIENT ON BIPAP WITH FIO2 AT 100% PAGER ID: [phone] MESSAGE: [phone]. ADIEL MCCORMICK. PATIENT ON BIPAP WITH FIO2 @ 100% AND OXYGEN SATURATIONS ARE MAINTAINING AT 85%. THANK YOU. JAILYN MUELLER X [phone]
--- NOTE | 2021-12-18 15:54 | NUR ---
PAGER ID: [phone] MESSAGE: [phone]. niurka mojica. rapid response being called. thank you. lloyd bragg x [phone]
[2021-12-18] MEDS ORDERED: NORepinephrine 8mg/ 250ml NS 250 ML IV ONE (16:29)
[2021-12-18] MEDS ORDERED: vancomycin inj 500 MG in normal saline 100ml IV soln 100 ML IV SCH (17:00)
[2021-12-18 17:13] LABS: BASOPHILS % (AUTO) 0 % (0-1); EOSINOPHILS # (AUTO) 0.2 X10'3 (0-0.9); EOSINOPHILS % (AUTO) 0.8 % (0-6); HEMOGLOBIN 10.2 g/dl (12.0-16.0); LYMPHOCYTES # (AUTO) 1.5 X10'3 (1.1-4.8); LYMPHOCYTES % (AUTO) 7.2 % (21-51); MEAN CORPUSCULAR HEMOGLOBIN 27.2 PG (27.0-31.0); MEAN CORPUSCULAR HGB CONC 32.7 g/dL (33.0-36.5); MEAN CORPUSCULAR VOLUME 83.2 FL (78-98); MEAN PLATELET VOLUME 9.7 FL (7.4-10.4); MONOCYTES # (AUTO) 0.3 X10'3 (0-0.9); MONOCYTES % (AUTO) 1.2 % (2-12); NEUTROPHILS # (AUTO) 19.3 X10'3 (1.8-7.7); NEUTROPHILS % (AUTO) 90.8 % (42-75); PLATELET COUNT 180 X10'3 (140-440); RED BLOOD COUNT 3.73 X10'6 (4.20-5.60); RED CELL DISTRIBUTION WIDTH 16.5 % (11.5-14.5); WHITE BLOOD COUNT 21.2 X10'3 (4.5-11.0)
[2021-12-18 17:19] LABS: ABG HCO3 19.8 mmol/L (22.0-26.0); ABG OXYGEN SATURATION 86.9 % (94-97); ABG PCO2 (T) 61.7 mmHg (32.0-45.0); ALLEN'S TEST Modified; FCOHb 0.3 % (0.0-3.9); FMetHb 0.4 % (0.0-1.5); FO2Hb 86.3 % (94-97); PATIENT TEMPERATURE 36.3; TOTAL HEMOGLOBIN 11.4 G/dl (12.0-16.0)
[2021-12-18] MEDS ORDERED: sodium bicarbonate (8.4%) 1 mEq/ml syringe ONE (17:23)
[2021-12-18 17:27] LABS: ALANINE AMINOTRANSFERASE 14 U/L (12-78); ALBUMIN 1.8 G/DL (3.4-5.0); ALBUMIN/GLOBULIN RATIO 0.5 (1.1-1.5); ALKALINE PHOSPHATASE 117 IU/L (46-116); ANION GAP 11 (8-16); ASPARTATE AMINO TRANSFERASE 47 U/L (10-37); BILIRUBIN,TOTAL 2.1 MG/DL (0.1-1.0); BLOOD UREA NITROGEN 43 MG/DL (7-18); BUN/CREATININE RATIO 19.9 (6.6-38.0); CALCIUM 7.2 MG/DL (8.5-10.1); CHLORIDE 104 MMOL/L (99-107); CREATININE 2.16 MG/DL (0.40-0.90); GLUCOSE 89 MG/DL (70-104); MAGNESIUM 2.3 MG/DL (1.5-2.4); PHOSPHORUS 4.3 MG/DL (2.3-4.5); POTASSIUM 3.6 MMOL/L (3.5-5.1); SODIUM 137 MMOL/L (135-145); TOTAL CARBON DIOXIDE 21.8 MMOL/L (24-32); TOTAL PROTEIN 5.6 G/DL (6.4-8.2); eGFR 23 ML/MIN
[2021-12-18 17:31] LABS: D-DIMER 8.55 MG/L FEU (0-0.50)
[2021-12-18 17:58] LABS: ANISOCYTOSIS 1+; PLATELET ESTIMATE NORMAL; TOTAL CELLS COUNTED 100
--- NOTE | 2021-12-18 17:58 | NUR ---
While assisting with manual proning pt, noticed that left eye is dilated to a 4 and rt eye is dilated to a 3, Dr. Perkins at bedside and aquino of pts pupillary changes. No new orders at this time.
[2021-12-18 17:59] LABS: HYPOCHROMASIA 1+
[2021-12-18 18:00] LABS: STOMATOCYTES 2+
[2021-12-18] MEDS ORDERED: sodium bicarbonate (8.4%) inj. 150 MEQ in dextrose 5%-water 1,000 ML IV SCH (18:30)
--- NOTE | 2021-12-18 18:31 | NUR ---
CALLED TO ROOM 3018 FOR A RR. NOTED PT TO BE OBTUNDED ON BIPAP AT 100% SATS WERE IN THE UPPER 80'S RESPIRATORY RATE IN THE 30'S. HEART RATE IN THE 110'S. ABG OBTAINED REFLECTING RESPIRATORY ACIDOSIS. CXR ORDERED. PT PLACED WITH HEAD DOWN AND FOOT OF BED GATCHED. DR. ESTEVEZ ACCEPTED PT. PT MOVED TO ICU WITH BIPAP AND MONITOR IN PLACE. oONCE TO ROOM 9 PT INTUBATED WITH 20 OF ETOMIDATE AND 50 OF CHICHI. PT PLACED ON LEVOPHED AND 1000CC NS BOLUS GIVEN. MD PLACED CVL AND ART LINES CXR OBTAINED PLACEMENT CONFIRMED. PT PRONED. DISCUSSED PT CONDITION AND PROGNOSIS WITH DAUGHTER AND .
[2021-12-18] MEDS ORDERED: cefTRIAXone 1g/NS 100ml IVPB 100 ML IV ONE (18:40)
[2021-12-18 19:30] LABS: ABG BASE EXCESS -5.4 mmol/L (-2.0-2.0); ABG HCO3 24.7 mmol/L (22.0-26.0); ABG OXYGEN SATURATION 77.8 % (94-97); ABG PCO2 (T) 75.2 mmHg (32.0-45.0); ABG PO2 (T) 51.7 mmHg (75.0-100.0); FCOHb 0.3 % (0.0-3.9); FMetHb 0.3 % (0.0-1.5); FO2Hb 77.3 % (94-97); PEEP 15 cm H2O; RESPIRATORY RATE 20 b/min; TIDAL VOLUME 350 mL; TOTAL HEMOGLOBIN 11.2 G/dl (12.0-16.0)
[2021-12-18] MEDS: K and/or MAG REPLACEMENT MC SCH (20:00)
[2021-12-18] MEDS ORDERED: piperacillin/tazo 3.375gm/50ml 50 ML IV SCH (20:00)
[2021-12-18] MEDS ORDERED: docusate sod 100mg capsule PO SCH (20:00)
[2021-12-18] MEDS ORDERED: furosemide 10 MG/1 ML 10ml inj IV ONE (20:10)
[2021-12-18] MEDS: ringers solution, lacted 1,000 ML IV SCH (20:23)
[2021-12-18 20:52] LABS: HEMATOCRIT 31.3 % (35.0-45.0); HEMOGLOBIN 10.1 g/dl (12.0-16.0); MEAN CORPUSCULAR HEMOGLOBIN 26.7 PG (27.0-31.0); MEAN CORPUSCULAR HGB CONC 32.3 g/dL (33.0-36.5); MEAN CORPUSCULAR VOLUME 82.6 FL (78-98); MEAN PLATELET VOLUME 10.3 FL (7.4-10.4); PLATELET COUNT 174 X10'3 (140-440); RED BLOOD COUNT 3.79 X10'6 (4.20-5.60); RED CELL DISTRIBUTION WIDTH 16.3 % (11.5-14.5); WHITE BLOOD COUNT 21.5 X10'3 (4.5-11.0)
[2021-12-18] MEDS ORDERED: traZODone 150mg tablet PO SCH (21:00)
[2021-12-18] MEDS ORDERED: acetylcysteine 200 MG/ml 4ml vial INH SCH (21:20)
[2021-12-18] MEDS ORDERED: CISatracurium besylate inj. 100 MG in normal saline 100ml IV soln 90 ML IV PRN (21:25)
[2021-12-18] MEDS ORDERED: CISatracurium **Bolus** 2 mg/ml inj IV ONE (21:25)
--- NOTE | 2021-12-18 21:51 | NUR ---
Pt's Spo2 down to the low 80's, pt using accessory muscles, unchanged with fentanyl bolus and on max ventilator support. Spoke to Nurse practitioner Brendan Carver new orders received to start an Nimbex drip, with a Nimbex bolus use train of four for paralytic guidelines.
[2021-12-18] MEDS: CISatracurium besylate 100 MG in NS 100ml IV IV PRN (22:27)
[2021-12-18] MEDS: FENTANYL-0.9 % NACL/PF 100 ML IV PRN ×2 (22:55→23:53)
[2021-12-19] VITALS (33 sets, daily range): BP systolic 93–134; BP diastolic 39–52
[2021-12-19] MEDS ORDERED: acetylcysteine 200 MG/ml 4ml vial INH SCH
[2021-12-19 00:22] LABS: ABG BASE EXCESS -5.6 mmol/L (-2.0-2.0); ABG HCO3 22.8 mmol/L (22.0-26.0); ABG OXYGEN SATURATION 80.7 % (94-97); ABG PCO2 (T) 59.8 mmHg (32.0-45.0); ABG PO2 (T) 49.8 mmHg (75.0-100.0); FCOHb 0.3 % (0.0-3.9); FMetHb 0.3 % (0.0-1.5); FO2Hb 80.2 % (94-97); PEEP 15 cm H2O; RESPIRATORY RATE 26 b/min; TIDAL VOLUME 350 mL; TOTAL HEMOGLOBIN 10.7 G/dl (12.0-16.0)
[2021-12-19] MEDS: heparin, porcine 5000 units/ml vial SQ SCH ×3 (01:03→16:38)
[2021-12-19 01:14] LABS: BASOPHILS % (AUTO) 0.3 % (0-1); EOSINOPHILS % (AUTO) 0.3 % (0-6); HEMATOCRIT 30.2 % (35.0-45.0); HEMOGLOBIN 9.8 g/dl (12.0-16.0); LYMPHOCYTES # (AUTO) 1.7 X10'3 (1.1-4.8); LYMPHOCYTES % (AUTO) 9.5 % (21-51); MEAN CORPUSCULAR HEMOGLOBIN 26.9 PG (27.0-31.0); MEAN CORPUSCULAR HGB CONC 32.4 g/dL (33.0-36.5); MEAN CORPUSCULAR VOLUME 83.2 FL (78-98); MEAN PLATELET VOLUME 9.7 FL (7.4-10.4); MONOCYTES # (AUTO) 0.3 X10'3 (0-0.9); MONOCYTES % (AUTO) 1.7 % (2-12); NEUTROPHILS # (AUTO) 16.3 X10'3 (1.8-7.7); NEUTROPHILS % (AUTO) 88.2 % (42-75); PLATELET COUNT 182 X10'3 (140-440); RED BLOOD COUNT 3.63 X10'6 (4.20-5.60); RED CELL DISTRIBUTION WIDTH 16.3 % (11.5-14.5); WHITE BLOOD COUNT 18.4 X10'3 (4.5-11.0)
[2021-12-19 01:22] LABS: ALANINE AMINOTRANSFERASE 15 U/L (12-78); ALBUMIN 1.7 G/DL (3.4-5.0); ALBUMIN/GLOBULIN RATIO 0.4 (1.1-1.5); ALKALINE PHOSPHATASE 110 IU/L (46-116); ANION GAP 11 (8-16); ASPARTATE AMINO TRANSFERASE 47 U/L (10-37); BILIRUBIN,TOTAL 1.5 MG/DL (0.1-1.0); BLOOD UREA NITROGEN 55 MG/DL (7-18); BUN/CREATININE RATIO 20.7 (6.6-38.0); CALCIUM 7.1 MG/DL (8.5-10.1); CHLORIDE 103 MMOL/L (99-107); CREATININE 2.66 MG/DL (0.40-0.90); GLUCOSE 94 MG/DL (70-104); MAGNESIUM 2.5 MG/DL (1.5-2.4); POTASSIUM 4.1 MMOL/L (3.5-5.1); SODIUM 140 MMOL/L (135-145); TOTAL CARBON DIOXIDE 25.7 MMOL/L (24-32); TOTAL PROTEIN 5.6 G/DL (6.4-8.2); eGFR 18 ML/MIN
[2021-12-19 01:48] LABS: NUCLEATED RED BLOOD CELLS 1 /100WBC (0-0); TOTAL CELLS COUNTED 100
[2021-12-19 01:49] LABS: PLATELET ESTIMATE DECREASED
[2021-12-19 01:50] LABS: ANISOCYTOSIS 1+; STOMATOCYTES 1+
[2021-12-19 01:51] LABS: HYPOCHROMASIA 1+
[2021-12-19] MEDS ORDERED: NORepinephrine inj. 8 MG in dextrose 5%-water 242 ML IV SCH (02:10)
--- NOTE | 2021-12-19 02:12 | NUR ---
noted on eMAR that levophed had been DC'd call to pharmacy to inquire. Sts med DC'd by a Dr. Choudhury at [address]. No Dr[address] Choudhury on pt's case. pharmacist requires new order input. placed order per Dr. Carver at this time.
[2021-12-19] MEDS ORDERED: NORepinephrine 8mg/ 250ml NS 250 ML IV SCH (02:23)
[2021-12-19 04:07] LABS: ABG BASE EXCESS -6.5 mmol/L (-2.0-2.0); ABG HCO3 22.5 mmol/L (22.0-26.0); ABG OXYGEN SATURATION 80.6 % (94-97); ABG PCO2 (T) 62.9 mmHg (32.0-45.0); ABG PO2 (T) 50.4 mmHg (75.0-100.0); FCOHb 0.3 % (0.0-3.9); FMetHb 0.3 % (0.0-1.5); FO2Hb 80.1 % (94-97); RESPIRATORY RATE 26 b/min; TIDAL VOLUME 350 mL; TOTAL HEMOGLOBIN 11.5 G/dl (12.0-16.0)
--- NOTE | 2021-12-19 06:30 | NUR ---
Patient in room CICU 2008. I have received report from ERVIN Cárdenas and had the opportunity to ask questions and assume patient care.
[2021-12-19] MEDS: ipratropium/albuterol 3ml nebule NEB SCH ×5 (06:52→23:39)
[2021-12-19] MEDS: pantoprazole 40mg Tablet.DR PO SCH (07:30)
[2021-12-19] MEDS: propofol 1000mg/100ml bottle 100 ML IV SCH ×2 (07:55→17:17)
[2021-12-19] MEDS ORDERED: levoFLOXACIN-Levaquin 750MG/D5 150 ML IV SCH (08:00)
[2021-12-19] MEDS: [UNRECOGNIZED DRUG - OTHER] PO SCH (08:00)
[2021-12-19] MEDS: fluticasone nasal spray 16GM bottle NS SCH (08:00)
[2021-12-19] MEDS: Tiotropium Br/Olodaterol HCl (Stiolto Respimat Inhal Spray) PO SCH (08:00)
[2021-12-19] MEDS: K and/or MAG REPLACEMENT MC SCH ×2 (08:00→20:00)
[2021-12-19] MEDS ORDERED: cefTRIAXone 1g/NS 100ml IVPB 100 ML IV SCH (08:00)
[2021-12-19] MEDS: Ursodiol 300mg capsule PO SCH (08:00)
[2021-12-19] MEDS ORDERED: non-formulary drug (Omeprazole 1 CAP) PO SCH (08:00)
[2021-12-19] MEDS ORDERED: vasopressin inj. 40 UNIT in dextrose 5%-water 50ml 38 ML IV SCH (08:25)
[2021-12-19 08:39] LABS: ABG BASE EXCESS -8.5 mmol/L (-2.0-2.0); ABG OXYGEN SATURATION 95.9 % (94-97); ABG PCO2 (T) 68.6 mmHg (32.0-45.0); ABG PO2 (T) 100.7 mmHg (75.0-100.0); FCOHb 0.3 % (0.0-3.9); FMetHb 0.5 % (0.0-1.5); FO2Hb 95.1 % (94-97); PATIENT TEMPERATURE 38.7; PEEP 15 cm H2O; RESPIRATORY RATE 26 b/min; TIDAL VOLUME 350 mL; TOTAL HEMOGLOBIN 11.4 G/dl (12.0-16.0)
[2021-12-19] MEDS ORDERED: acetaminophen 120MG suppository, rectal RC PRN ×2 (08:45→08:59)
[2021-12-19] MEDS ORDERED: acetaminophen 325mg tablet OGT PRN (08:48)
[2021-12-19] MEDS ORDERED: busPIRone 5mg tablet OGT PRN (08:49)
[2021-12-19] MEDS: FENTANYL-0.9 % NACL/PF 100 ML IV PRN ×2 (09:04→17:12)
[2021-12-19] MEDS: acetaminophen 650mg rectal suppository RC PRN (09:08)
[2021-12-19] MEDS: NORepinephrine inj. 32 MG in normal saline 250ml IV soln 218 ML IV SCH ×2 (09:41→21:49)
[2021-12-19] MEDS: nicotine 14mg patch - 24hr TD SCH (09:46)
[2021-12-19] MEDS: vasopressin inj. 40 UNIT in normal saline 50ml IV soln 38 ML IV SCH ×2 (10:09→22:51)
--- NOTE | 2021-12-19 11:00 | NUR ---
Rounds note: Patient to be started on vanesa if map does not maintain at 60. Patient to be given 300 ml bolus of 25% Albumin. Dr. Perkins does not want patient to be supine until 12/20 Addendum: 12/19/21 at 1755 by Teresa Hernandez RN Dr. Perkins eventually decided to change supine day to 12/21. He would like patient to remain prone.
[2021-12-19] MEDS ORDERED: albumin (human) 25% 100ml IV 300 ML IV ONE (11:15)
[2021-12-19] MEDS ORDERED: albumin (human) 25% 100ml IV 100 ML IV ONE ×3 (11:18→11:20)
[2021-12-19] MEDS ORDERED: PHENYLephrine 100 MG in NS 250ml IV soln IV SCH (11:20)
--- NOTE | 2021-12-19 11:30 | NUR ---
Patient position changed with x2 RN and x1 RT. Patient tolerated well. Left cheek noted with purple area, as well as left ear. Pictures taken and placed in the chart.
[2021-12-19] MEDS ORDERED: vancomycin/NS 1 GM ADD-VANTAGE 250 ML X 1 DOSE IV PRN (11:40)
[2021-12-19] MEDS: ringers solution, lacted 1,000 ML IV SCH (11:40)
--- NOTE | 2021-12-19 11:50 | NUR ---
F/u: Pt s/p rapid response 12/18 resulting in intubation. Propofol visualized at bedside to be running at 10.48 mL/hr providing 276 kcal/day, though per RN at critical care rounds Propofol is attempting to be weaned down. See TF recommendations below for if expected prolonged intubation and to receive nutrition support. Noted pt with a low Nuno of 8, per EMR no edema or wounds. LBM 12/18 per I&O. Will continue to follow closely. Recommendations: 1. IF TF and Propofol at 10.48 mL/hr, continuous Vital AF at 35 mL/hr 2. IF TF and pt not receiving Propofol, continuous Vital AF at 45 mL/hr 3. IF TF, additional 70 mL water flush Q4H; monitor serum Na 4. IF TF, prealbumin q Friday/; daily scaled weights 5. Routine bowel care 6. Advance to regular diet as medically indicated following extubation and BSS with ST; on a full liquid diet prior to intubation per ST recs Addendum: 12/19/21 at [address] Amended: Links added.
--- NOTE | 2021-12-19 12:54 | NUR ---
Dr. Perkins spoke with patient's family about the patient condition and expressed how critical and sick the patient is at this time. Expressed that we are attempting to get the patient transferred however, it is looking like we may not be able to do so today. Daughter stated an understanding of how critical the patient is at this time and is encouraging the rest of the family to come and see he incase it is the last change that they get before the patient potentially passes.
[2021-12-19 13:08] LABS: CLARITY,URINE CLOUDY (Clear); COLOR,URINE YELLOW (Yellow); GLUCOSE, URINE NEGATIVE (Neg); KETONES,URINE TRACE mg/dl (Neg); LEUKOCYTE ESTERASE ,URINE NEGATIVE (Neg); NITRITES, URINE NEGATIVE (Neg); OCCULT BLOOD,URINE MODERATE (Neg); PROTEIN,URINE 100 mg/dl (Neg)
[2021-12-19 13:12] LABS: UA COLLECTION TYPE NON-SPECIFIED
[2021-12-19 13:14] LABS: SQUAMOUS EPITHELIAL CELL,UR FEW /LPF (FEW)
[2021-12-19 13:15] LABS: BACTERIA,URINE FEW /HPF (Neg); RBC,URINE 0-2 /HPF (0-2); WBC,URINE 0-4 /HPF (0-4)
[2021-12-19 13:16] LABS: AMORPHOUS URATES 2+; YEAST MODERATE /HPF (NEGATIVE)
[2021-12-19 13:59] LABS: UA EOSINOPHILS NO EOS /HPF
--- NOTE | 2021-12-19 14:55 | NUR ---
Spoke with Dr. Perkins to see if we should attempt a supine today. He stated that the patient is too unstable to do so today and stated that he would like her to be prone until Thursday 12/21 first thing in the AM. Addendum: 12/19/21 at 1750 by Teresa Hernandez RN It was explained to Dr. Perkins that this would put her prone for a total of [address] Perkins stated that this is what he wants for the patient because in his opinion, "patient will probably have cardiac arrest if we supine her".
[2021-12-19] MEDS ORDERED: VANCOMYCIN LEVEL IV ONE (15:00)
--- NOTE | 2021-12-19 16:40 | NUR ---
Final rounds with Dr. Perkins It was confirmed again that he would like to keep the patient prone until Thursday 12/21. Okay to switch patient's head left and right but body should remain prone for that entire time.
--- NOTE | 2021-12-19 16:42 | NUR ---
Patient position changed with x2 RN and x1 RT. Patient tolerated well.
[2021-12-19] MEDS ORDERED: vancomycin/NS 1 GM ADD-VANTAGE 250 ML IV ONE (17:00)
[2021-12-19] MEDS: CISatracurium besylate 100 MG in NS 100ml IV IV PRN (17:16)
--- NOTE | 2021-12-19 18:17 | NUR ---
Problems reprioritized. Patient report given, questions answered & plan of care reviewed with ERVIN Cárdenas.
--- NOTE | 2021-12-19 19:30 | NUR ---
spoke with daughters and other family members in attendance. Condition update and system review given. discussed code status options and what they mean. provided opportunity for questions and all questions answered. Awaiting clergy's arrival
[2021-12-19] MEDS: fludrocortisone acetate 0.1mg tablet PO SCH (20:00)
[2021-12-19] MEDS: traZODone 150mg tablet PO SCH (20:00)
[2021-12-19] MEDS: docusate sodium 100mg/10ml UD cup PO SCH (20:00)
--- NOTE | 2021-12-19 20:30 | NUR ---
clergy at bedside with family for prayer and blessings. Daughter requests explaination of how to change code status to DNR. Explained when she is ready to make that change we will have the doctor call her to discuss and make appropriate order changes. Verbalizes understanding of info given. Sts they are going to dinner and will discuss with one last family member prior to making their decision.
[2021-12-19] MEDS: hydrocortisone sod succ/PF 100mg/2ml inj. IV SCH (20:32)
[2021-12-19] MEDS: acetaminophen 325mg tablet OGT PRN (20:33)
--- NOTE | 2021-12-19 21:00 | NUR ---
RT at bedside to assist with repositioning pt's head to left. noted optifoam to left cheek. Deeply discolored areas on jose knees noted. photo's taken.
[2021-12-20] VITALS (24 sets, daily range): BP systolic 85–156; BP diastolic 38–104
--- NOTE | 2021-12-20 00:45 | NUR ---
Rohan Carver BRAKE REPAIRER called after speaking with family, pt is now a DNR, the transfer to [facility] is canceled.
[2021-12-20] MEDS: heparin, porcine 5000 units/ml vial SQ SCH ×2 (01:07→08:41)
[2021-12-20] MEDS: ringers solution, lacted 1,000 ML IV SCH (01:14)
[2021-12-20] MEDS: hydrocortisone sod succ/PF 100mg/2ml inj. IV SCH ×2 (02:00→08:35)
[2021-12-20 02:58] LABS: BASOPHILS % (AUTO) 0 % (0-1); EOSINOPHILS # (AUTO) 0.6 X10'3 (0-0.9); EOSINOPHILS % (AUTO) 2.3 % (0-6); HEMATOCRIT 29.3 % (35.0-45.0); HEMOGLOBIN 9.2 g/dl (12.0-16.0); LYMPHOCYTES # (AUTO) 1.5 X10'3 (1.1-4.8); LYMPHOCYTES % (AUTO) 6.1 % (21-51); MEAN CORPUSCULAR HEMOGLOBIN 26.7 PG (27.0-31.0); MEAN CORPUSCULAR HGB CONC 31.4 g/dL (33.0-36.5); MEAN CORPUSCULAR VOLUME 85.2 FL (78-98); MEAN PLATELET VOLUME 9.7 FL (7.4-10.4); MONOCYTES # (AUTO) 0.7 X10'3 (0-0.9); MONOCYTES % (AUTO) 2.7 % (2-12); NEUTROPHILS # (AUTO) 22.4 X10'3 (1.8-7.7); NEUTROPHILS % (AUTO) 88.9 % (42-75); PLATELET COUNT 189 X10'3 (140-440); RED BLOOD COUNT 3.44 X10'6 (4.20-5.60); RED CELL DISTRIBUTION WIDTH 17.3 % (11.5-14.5)
[2021-12-20] MEDS ORDERED: VANCOMYCIN LEVEL IV SCH (03:00)
[2021-12-20 03:11] LABS: WHITE BLOOD COUNT 25.2 X10'3 (4.5-11.0)
[2021-12-20 03:13] LABS: ALANINE AMINOTRANSFERASE 23 U/L (12-78); ALBUMIN 2.4 G/DL (3.4-5.0); ALBUMIN/GLOBULIN RATIO 0.6 (1.1-1.5); ALKALINE PHOSPHATASE 130 IU/L (46-116); ANION GAP 18 (8-16); ASPARTATE AMINO TRANSFERASE 89 U/L (10-37); BILIRUBIN,TOTAL 1.7 MG/DL (0.1-1.0); BLOOD UREA NITROGEN 72 MG/DL (7-18); CALCIUM 7.3 MG/DL (8.5-10.1); CHLORIDE 101 MMOL/L (99-107); CREATININE 4.24 MG/DL (0.40-0.90); GLUCOSE 105 MG/DL (70-104); MAGNESIUM 2.7 MG/DL (1.5-2.4); PHOSPHORUS 7.1 MG/DL (2.3-4.5); POTASSIUM 5.1 MMOL/L (3.5-5.1); SODIUM 139 MMOL/L (135-145); TOTAL CARBON DIOXIDE 20.3 MMOL/L (24-32); TOTAL PROTEIN 6.1 G/DL (6.4-8.2); TRIGLYCERIDES 381 MG/DL (20-135); eGFR 11 ML/MIN
[2021-12-20] MEDS: acetaminophen 325mg tablet OGT PRN (03:27)
[2021-12-20 04:15] LABS: ABG BASE EXCESS -15.9 mmol/L (-2.0-2.0); ABG HCO3 13.5 mmol/L (22.0-26.0); ABG OXYGEN SATURATION 91.8 % (94-97); ABG PCO2 (T) 50.2 mmHg (32.0-45.0); ABG PO2 (T) 78.3 mmHg (75.0-100.0); FCOHb 0.4 % (0.0-3.9); FMetHb 0.2 % (0.0-1.5); FO2Hb 91.2 % (94-97); PATIENT TEMPERATURE 38.3; PEEP 15 cm H2O; RESPIRATORY RATE 26 b/min; TIDAL VOLUME 350 mL; TOTAL HEMOGLOBIN 9.8 G/dl (12.0-16.0)
[2021-12-20] MEDS ORDERED: sodium bicarbonate (8.4%) 1 mEq/ml syringe ONE (04:29)
--- NOTE | 2021-12-20 04:30 | NUR ---
call to Dr. Carver to report ABG results. Orders noted.
[2021-12-20] MEDS ORDERED: sodium bicarbonate (8.4%) 1 mEq/ml syringe IV ONE (04:35)
[2021-12-20] MEDS ORDERED: sodium bicarbonate (8.4%) inj. 150 MEQ in dextrose 5%-water 1,000 ML IV SCH (04:35)
[2021-12-20 05:42] LABS: ANISOCYTOSIS 1+; PLATELET ESTIMATE NORMAL; TOTAL CELLS COUNTED 100
--- NOTE | 2021-12-20 06:25 | NUR ---
REPORT RECEIVED FROM PRABHA MUELLER. PT REMAINS IN PRONE POSITION. PHARMACY CALLED FOR BICARB DRIP STATUS. ALL DRIPS DOUBLE CHECKED.
--- NOTE | 2021-12-20 07:15 | NUR ---
RECEIVED A PHONE CALL FROM DR CASEY IN RADIOLOGY, STATES THE NG TUBE IS POSSIBLY IN THE CHEST AND TO REMOVE IT IMMEDIATELY. SPOKE WITH CHARGE NURSE DUDLEY AND RESPIRATORY. NG TUBE UNTAPED FROM ET TUBE AND REMOVED WITHOUT DIFFICULTY, NO SIGNS OF BLEEDING NOTED.
[2021-12-20] MEDS: ipratropium/albuterol 3ml nebule NEB SCH ×2 (07:33→11:13)
--- NOTE | 2021-12-20 07:53 | NUR ---
RT AT BEDSIDE, ORDERS TO REPEAT ABG, IT HAS BEEN APPROX 2 HOURS SINCE VENT CHANGES. MINIMAL IMPROVEMENT NOTED. NO VENT CHANGES AT THIS TIME.
[2021-12-20 07:54] LABS: ABG BASE EXCESS -10.4 mmol/L (-2.0-2.0); ABG HCO3 17.7 mmol/L (22.0-26.0); ABG OXYGEN SATURATION 96.7 % (94-97); ABG PCO2 (T) 51.5 mmHg (32.0-45.0); ABG PO2 (T) 101.8 mmHg (75.0-100.0); FCOHb 0.3 % (0.0-3.9); FMetHb 0.5 % (0.0-1.5); FO2Hb 95.9 % (94-97); PEEP 13 cm H2O; RESPIRATORY RATE 32 b/min; TIDAL VOLUME 350 mL; TOTAL HEMOGLOBIN 10.5 G/dl (12.0-16.0)
[2021-12-20] MEDS: Ursodiol 300mg capsule PO SCH (08:00)
[2021-12-20] MEDS: [UNRECOGNIZED DRUG - OTHER] PO SCH (08:00)
[2021-12-20] MEDS: Tiotropium Br/Olodaterol HCl (Stiolto Respimat Inhal Spray) PO SCH (08:00)
[2021-12-20] MEDS: fludrocortisone acetate 0.1mg tablet PO SCH (08:00)
[2021-12-20] MEDS ORDERED: piperacillin/tazo 4.5gm/100ml 100 ML IV SCH (08:00)
[2021-12-20] MEDS: fluticasone nasal spray 16GM bottle NS SCH (08:00)
[2021-12-20] MEDS: docusate sodium 100mg/10ml UD cup PO SCH (08:00)
[2021-12-20] MEDS: K and/or MAG REPLACEMENT MC SCH (08:00)
[2021-12-20] MEDS: nicotine 14mg patch - 24hr TD SCH (08:35)
--- NOTE | 2021-12-20 10:05 | NUR ---
DAUGHTER AT BEDSIDE, CHARLES SCREW EYE ASSEMBLER ALSO AT BEDSIDE, DAUGHTER IS VERY EMOTIONAL, CRYING, FAMILY SUPPORT AT HER SIDE. END OF LIFE INFORMATION GIVEN TO DAUGHTER BY SCREW EYE ASSEMBLER.
--- NOTE | 2021-12-20 10:19 | NUR ---
PT REPOSITIONED AT 0900 WITH SKIN CARE NURSE, BLOOD PRESSURE NOTICABLE HIGHER WITH HER HEAD TURNED TO THE LEFT. RECEIVED THIS INFORMATION FROM PREVIOUS NIGHT NURSE. MD IS AWARE
[2021-12-20] MEDS: acetaminophen 650mg rectal suppository RC PRN (11:08)
[2021-12-20] MEDS: FENTANYL-0.9 % NACL/PF 100 ML IV PRN (11:40)
--- NOTE | 2021-12-20 12:17 | NUR ---
SPOKE WITH [employer]WORK[employer]ARETH, REFERENCE [phone]. 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
--- NOTE | 2021-12-20 12:24 | NUR ---
PTS AUNT ALBINA HAS ARRIVED, PTS SON ALSO HERE. PTS PARTNER AT BEDSIDE, FAMILY CONFERENCE WITH PHYSICIAN.
--- NOTE | 2021-12-20 13:20 | NUR ---
3 RINGS NECKLACE BRACELET ALL GOING TO DAUGHTER MAGALY
--- NOTE | 2021-12-20 15:14 | NUR ---
DECISION MADE BY FAMILY TO WITHDRAWAL SUPPORT, RESPIRATORY CALLED TO BEDSIDE, DRIPS TURNED OFF, PT OPENS EYES TO VOICE. MAGISTRATE JUDGE NOTIFIED, ORDERS RECEIVED TO CONTINUE WITH FAMILIES WISHES TO EXTUBATE. EXTUBATED BY ABHISHEK BARTON, FAMILY AT BEDSIDE, PATIENT PASSES AWAY AT 1523 SURROUNDED BY FAMILY, [facility] CHOSEN BY FAMILY. ALL BELONGINGS GIVEN TO FAMILY INCLUDED PARTIAL PLATE AND BLACK PILLOW. FAMILY STATED THEY HAD TAKEN HER CLOTHES HOME ALREADY
[2021-12-20] MEDS ORDERED: VANCOMYCIN LEVEL IV ONE (16:30)
--- NOTE | 2021-12-20 16:30 | NUR ---
[facility] HERE AND PICKED UP PATIENT. NO BELONGINGS, ALL LINES AND SHAH REMOVED FROM PATIENT. HEAD OF BED ELEVATED, DIGNITY MAINTAINED. NARCOTICS WASTED WITH CHARGE NURSE.
[2021-12-21] MEDS ORDERED: levoFLOXACIN-Levaquin 500mg/D5 100 ML IV SCH (08:00)
== END 2021-12-20 16:37 | DRG 720 ==
LOC: ER 11:43 → ED HOLD 16:56 → UNDOADMIN 20:03 → ED HOLD 20:03 → EDBEDREQ 21:02 → PCU 3S 21:40 → ED HOLD 21:40 → CICU 2S 12-18 16:17
PROVIDERS: ADMIT Family Medicine; ATTEND Family Medicine
PROC: 5A09357 Assistance with Respiratory Ventilation, Less than 24 Consecutive Hours, Continuous Positive Airway Pressure (ICD-10-PCS; 2021-12-17)
PROC: 5A1945Z Respiratory Ventilation, 24-96 Consecutive Hours (ICD-10-PCS; principal; 2021-12-18)
PROC: 0BH17EZ Insertion of Endotracheal Airway into Trachea, Via Natural or Artificial Opening (ICD-10-PCS; 2021-12-18)
PROC: 5A09357 Assistance with Respiratory Ventilation, Less than 24 Consecutive Hours, Continuous Positive Airway Pressure (ICD-10-PCS; 2021-12-18)
PROC: 5A0935A Assistance with Respiratory Ventilation, Less than 24 Consecutive Hours, High Flow/Velocity Cannula (ICD-10-PCS; 2021-12-18)
PROC: 04HY32Z Insertion of Monitoring Device into Lower Artery, Percutaneous Approach (ICD-10-PCS; 2021-12-20)
PROC: 4A133B1 Monitoring of Arterial Pressure, Peripheral, Percutaneous Approach (ICD-10-PCS; 2021-12-20)
PROC: 4A133J1 Monitoring of Arterial Pulse, Peripheral, Percutaneous Approach (ICD-10-PCS; 2021-12-20)
PROC: 05H333Z Insertion of Infusion Device into Right Innominate Vein, Percutaneous Approach (ICD-10-PCS; 2021-12-20)
DX: A41.9 Sepsis, unspecified organism (principal); N17.0 Acute kidney failure with tubular necrosis; R65.21 Severe sepsis with septic shock; G93.41 Metabolic encephalopathy; J80 Acute respiratory distress syndrome; J18.9 Pneumonia, unspecified organism; K72.10 Chronic hepatic failure without coma; J44.0 Chronic obstructive pulmonary disease with (acute) lower respiratory infection; G89.29 Other chronic pain; M19.90 Unspecified osteoarthritis, unspecified site; Z20.822 Contact with and (suspected) exposure to COVID-19; D63.8 Anemia in other chronic diseases classified elsewhere; R04.2 Hemoptysis; K74.60 Unspecified cirrhosis of liver; E87.4 Mixed disorder of acid-base balance; M54.9 Dorsalgia, unspecified; K74.3 Primary biliary cirrhosis; Z96.653 Presence of artificial knee joint, bilateral; R16.2 Hepatomegaly with splenomegaly, not elsewhere classified; E78.00 Pure hypercholesterolemia, unspecified; E87.6 Hypokalemia; F17.210 Nicotine dependence, cigarettes, uncomplicated; Z66 Do not resuscitate; F41.9 Anxiety disorder, unspecified; Z51.5 Encounter for palliative care; Z87.19 Personal history of other diseases of the digestive system; Z90.711 Acquired absence of uterus with remaining cervical stump; Z99.81 Dependence on supplemental oxygen; Z88.8 Allergy status to other drugs, medicaments and biological substances; Z79.899 Other long term (current) drug therapy
CPT/HCPCS: 36415; 36600; 71045; 71250; 74176; 76770; 80053; 80061; 80202; 81001; 82570; 82803; 82948; 83605; 83690; 83735; 83880; 84100; 84145; 84300; 84443; 84478; 84484; 85007; 85018; 85025; 85027; 85379; 85610; 85730; 86885; 86900; 86901; 87040; 87070; 87207; 87502; 87503; 87635; 92508; 92616; 93306; 94002; 94003; 94640; 94660; 94760; 94799; 96374; 96375; 96376; 99291; A4314; A4333; A4620; A6209; A6212; A6213; A6258; A6402; A6449; A7015; C9803; G0378; J0696; J1644; J1720; J1940; J1956; J2060; J2543; J2704; J3010; J3370; J3475; J3480; J3490; J7030; J7040; J7050; J7070; J7120; P9047; Q0177